=== PATIENT | male | born 1975 | race Caucasian/White ===

== ENCOUNTER 2019-01-04 14:29 | Emergency (ER) | payer BC ==
[2019-01-04 14:34] VITALS: TEMP 97.9
[2019-01-04 15:13] VITALS: BP 135/89; PULSE 85; RESP 16
[2019-01-04] MEDS ORDERED: PANTOPRAZOLE 40 MG/10 ML VIAL IVP STA (16:03)
[2019-01-04] MEDS ORDERED: SODIUM CHLORIDE 0.9% 1,000 ML IV STA (16:03)
--- NOTE | 2019-01-04 16:45 | ED ---
Abdominal Pain HPI - General Chief Complaint: Abdominal Pain Stated Complaint: Chest pain Time Seen by Provider: 01/04/19 15:08 Source: patient Mode of arrival: ambulatory Limitations: no limitations - History of Present Illness Initial Comments: Patient is a 43-year-old male presenting to the emergency Department with complaints of epigastric pain x 1 week. Patient states he has been having issues with heartburn the last few weeks and states his pain has been progressively getting worse. Patient states the pain has been radiating out to either side as well. Patient states he has been taking Tums and omeprazole without relief of symptoms. Patient denies fever, chills, chest pain, shortness of breath, nausea, vomiting, diarrhea. Patient states he has not been to his PCP in years. Patient denies history of cardiac disease. Patient states family history of gallbladder issues. Patient has no other complaints at this time. Upon arrival to ER, vital signs are stable. - Related Data Home Medications Medication Instructions Recorded Confirmed Omeprazole Magnesium [PriLOSEC OTC] 20 mg PO DAILY 01/04/19 01/04/19 Allergies Allergy/AdvReac Type Severity Reaction Status Date / Time No Known Allergies Allergy Verified 01/04/19 14:42 Review of Systems ROS Statement: Those systems with pertinent positive or pertinent negative responses have been documented in the HPI. ROS Other: All systems not noted in ROS Statement are negative. Past Medical History Past Medical History: No Reported History History of Any Multi-Drug Resistant Organisms: None Reported Past Surgical History: Back Surgery Past Psychological History: No Psychological Hx Reported Smoking Status: Never smoker Past Alcohol Use History: Occasional Past Drug Use History: None Reported General Exam - General Exam Comments Initial Comments: GENERAL: Well-appearing, well-nourished and in no acute distress. HEAD: Atraumatic, normocephalic. EYES: Pupils equal round and reactive to light, extraocular movements intact, sclera anicteric, conjunctiva are normal. ENT: TMs normal, nares patent, oropharynx clear without exudates. Moist mucous membranes. NECK: Normal range of motion, supple without lymphadenopathy or JVD. LUNGS: Breath sounds clear to auscultation bilaterally and equal. No wheezes rales or rhonchi. HEART: Regular rate and rhythm without murmurs, rubs or gallops. ABDOMEN: Tender to palpation epigastric region. Soft, normoactive bowel sounds. No guarding, no rebound. No masses appreciated. : Deferred EXTREMITIES: Normal range of motion, no pitting or edema. No clubbing or cyanosis. NEUROLOGICAL: Cranial nerves II through XII grossly intact. Normal speech, normal gait. PSYCH: Normal mood, normal affect. SKIN: Warm, Dry, normal turgor, no rashes or lesions noted. Limitations: no limitations Course Vital Signs 01/04/19 01/04/19 01/04/19 14:31 14:34 18:46 Temperature 97.9 F 97.9 F Pulse Rate 101 H 85 85 Respiratory 18 16 16 Rate Blood Pressure 120/85 135/89 135/89 O2 Sat by Pulse 98 95 95 Oximetry Medical Decision Making - Medical Decision Making Patient is a 43-year-old male presenting with epigastric pain has been increasing over the past week. Patient denies fever, chills, vomiting, diarrhea. Patient admits to intermittent nausea. Patient has been taking omeprazole and Tums without improvement in symptoms. Patient has not been to his PCP in years. Patient denies any chest pain, shortness of breath. On exam patient has tenderness in the epigastric region, rest of exam is normal. CBC, CMP are within normal limits. Troponin is normal. EKG is normal. UA shows no signs of infection. Patient was given fluids and Protonix and patient reports improvement in symptoms. Discussed with patient this is most likely related to possible ulcer or gastritis. Patient will continue to take omeprazole but will double the dose and will be taking 40 mg daily. Patient was given referral for PCP and GI. Patient is stable for discharge at this time. Return parameters were discussed with the patient he verbalizes understanding. Case discussed with Dr. Arteaga. - Lab Data Result diagrams: 01/04/19 16:22 01/04/19 16:22 Lab Results 01/04/19 01/04/19 01/04/19 Range/Units 16:22 16:22 16:22 WBC 10.3 (3.8-10.6) k/uL RBC 4.87 (4.30-5.90) m/uL Hgb 14.8 (13.0-17.5) gm/dL Hct 41.2 (39.0-53.0) % MCV 84.5 (80.0-100.0) fL MCH 30.3 (25.0-35.0) pg MCHC 35.9 (31.0-37.0) g/dL RDW 14.2 (11.5-15.5) % Plt Count 223 (150-450) k/uL Neutrophils % 82 % Lymphocytes % 10 % Monocytes % 5 % Eosinophils % 2 % Basophils % 1 % Neutrophils # 8.4 H (1.3-7.7) k/uL Lymphocytes # 1.0 (1.0-4.8) k/uL Monocytes # 0.5 (0-1.0) k/uL Eosinophils # 0.2 (0-0.7) k/uL Basophils # 0.1 (0-0.2) k/uL Hyperchromasia Slight Sodium 140 (137-145) mmol/L Potassium 4.1 (3.5-5.1) mmol/L Chloride 105 (98-107) mmol/L Carbon Dioxide 22 (22-30) mmol/L Anion Gap 13 mmol/L BUN 14 (9-20) mg/dL Creatinine 1.13 (0.66-1.25) mg/dL Est GFR (CKD-EPI)AfAm >90 (>60 ml/min/1.73 sqM) Est GFR (CKD-EPI)NonAf 80 (>60 ml/min/1.73 sqM) Glucose 89 (74-99) mg/dL Calcium 9.5 (8.4-10.2) mg/dL Total Bilirubin 1.4 H (0.2-1.3) mg/dL AST 36 (17-59) U/L ALT 30 (21-72) U/L Alkaline Phosphatase 87 (38-126) U/L Troponin I <0.012 (0.000-0.034) ng/mL Total Protein 7.3 (6.3-8.2) g/dL Albumin 4.5 (3.5-5.0) g/dL Amylase 49 (30-110) U/L Lipase 75 (23-300) U/L Urine Color Urine Appearance (Clear) Urine pH (5.0-8.0) Ur Specific [place] (1.001-1.035) Urine Protein (Negative) Urine Glucose (UA) (Negative) Urine Ketones (Negative) Urine Blood (Negative) Urine Nitrite (Negative) Urine Bilirubin (Negative) Urine Urobilinogen (<2.0) mg/dL Ur Leukocyte Esterase (Negative) 09/20/19 Range/Units 17:35 WBC (3.8-10.6) k/uL RBC (4.30-5.90) m/uL Hgb (13.0-17.5) gm/dL Hct (39.0-53.0) % MCV (80.0-100.0) fL MCH (25.0-35.0) pg MCHC (31.0-37.0) g/dL RDW (11.5-15.5) % Plt Count (150-450) k/uL Neutrophils % % Lymphocytes % % Monocytes % % Eosinophils % % Basophils % % Neutrophils # (1.3-7.7) k/uL Lymphocytes # (1.0-4.8) k/uL Monocytes # (0-1.0) k/uL Eosinophils # (0-0.7) k/uL Basophils # (0-0.2) k/uL Hyperchromasia Sodium (137-145) mmol/L Potassium (3.5-5.1) mmol/L Chloride (98-107) mmol/L Carbon Dioxide (22-30) mmol/L Anion Gap mmol/L BUN (9-20) mg/dL Creatinine (0.66-1.25) mg/dL Est GFR (CKD-EPI)AfAm (>60 ml/min/1.73 sqM) Est GFR (CKD-EPI)NonAf (>60 ml/min/1.73 sqM) Glucose (74-99) mg/dL Calcium (8.4-10.2) mg/dL Total Bilirubin (0.2-1.3) mg/dL AST (17-59) U/L ALT (21-72) U/L Alkaline Phosphatase (38-126) U/L Troponin I (0.000-0.034) ng/mL Total Protein (6.3-8.2) g/dL Albumin (3.5-5.0) g/dL Amylase (30-110) U/L Lipase (23-300) U/L Urine Color Light Yellow Urine Appearance Clear (Clear) Urine pH 6.5 (5.0-8.0) Ur Specific [place] 1.010 (1.001-1.035) Urine Protein Negative (Negative) Urine Glucose (UA) Negative (Negative) Urine Ketones Negative (Negative) Urine Blood Negative (Negative) Urine Nitrite Negative (Negative) Urine Bilirubin Negative (Negative) Urine Urobilinogen <2.0 (<2.0) mg/dL Ur Leukocyte Esterase Negative (Negative) - EKG Data EKG Comments: Jugular rate 78, MT interval 164, QTC 435. Normal sinus rhythm. No ST segment changes. Disposition Clinical Impression: Epigastric pain, Gastritis Disposition: HOME SELF-CARE Condition: Stable Instructions (If sedation given, give patient instructions): Gastritis (ED) Additional Instructions: Please return to the Emergency Department if symptoms worsen or any other concerns. Follow-up with PCP and/or gastro-if symptoms do not improve. Take 40 mg of omeprazole, daily, as discussed. Is patient prescribed a controlled substance at d/c from ED?: No Referrals: None,Stated [Primary Care Provider] - 1-2 days Sergei Simon MD [REFERRING] - 1-2 days Amari Pelletier MD [STAFF PHYSICIAN] - 1-2 days
[2019-01-04 17:14] LABS: ALT 30 U/L (21-72); AST 36 U/L (17-59); African American GFR (CKD) >90 (>60 ml/min/1.73 sqM); Albumin 4.5 g/dL (3.5-5.0); Alkaline Phosphatase 87 U/L (38-126); Amylase 49 U/L (30-110); Anion Gap 13 mmol/L; Blood Urea Nitrogen 14 mg/dL (9-20); Calcium 9.5 mg/dL (8.4-10.2); Carbon Dioxide 22 mmol/L (22-30); Chloride 105 mmol/L (98-107); Glucose 89 mg/dL (74-99); Potassium 4.1 mmol/L (3.5-5.1); Sodium 140 mmol/L (137-145); Total Bilirubin 1.4 mg/dL (0.2-1.3); Total Protein 7.3 g/dL (6.3-8.2)
[2019-01-04 17:16] LABS: Basophils # (A) 0.1 k/uL (0-0.2); Basophils % (A) 1 %; Eosinophils # (A) 0.2 k/uL (0-0.7); Eosinophils % (A) 2 %; HCT 41.2 % (39.0-53.0); HGB 14.8 gm/dL (13.0-17.5); Hyperchromasia Slight; Lymphocytes % (A) 10 %; MCH 30.3 pg (25.0-35.0); MCHC 35.9 g/dL (31.0-37.0); MCV 84.5 fL (80.0-100.0); Mean Platelet Volume 6.9; Monocytes # (A) 0.5 k/uL (0-1.0); Monocytes % (A) 5 %; Neutrophils # (A) 8.4 k/uL (1.3-7.7); Neutrophils % (A) 82 %; Platelet Count 223 k/uL (150-450); RBC 4.87 m/uL (4.30-5.90); RDW 14.2 % (11.5-15.5); WBC 10.3 k/uL (3.8-10.6)
[2019-01-04 17:48] LABS: Appearance,Urine Clear (Clear); Bilirubin,Urine Negative (Negative); Blood,Urine Negative (Negative); Color,Urine Light Yellow; Glucose,Urine (UA) Negative (Negative); Ketones,Urine Negative (Negative); Leukocyte Esterase,Urine Negative (Negative); Nitrite,Urine Negative (Negative); PH, Urine 6.5 (5.0-8.0); Protein,Urine Negative (Negative); Urobilinogen,Urine <2.0 mg/dL (<2.0)
== END 2019-01-04 18:46 | disposition home or self-care (01) ==
LOC: EC 14:29
DX: K29.70 Gastritis, unspecified, without bleeding (principal); Z79.899 Other long term (current) drug therapy
CPT/HCPCS: 36415; 93005; 80053; 82150; 83690; 84484; 85025; 81003; 99284; 96374; 96361 ×2; C9113

== ENCOUNTER 2019-01-14 00:58 | Emergency (ER) | payer BC ==
[2019-01-14] MEDS ORDERED: HYDROmorphone 0.5 MG/0.5 ML SYRINGE IVP STA (01:40)
[2019-01-14] MEDS ORDERED: ONDANSETRON 4 MG/2 ML VIAL IVP STA (01:40)
[2019-01-14] MEDS ORDERED: SODIUM CHLORIDE 0.9% 1,000 ML IV STA (01:40)
[2019-01-14] MEDS ORDERED: KETOROLAC 30 MG/ML 1 ML VIAL IVP STA (01:40)
[2019-01-14 01:53] LABS: Appearance,Urine Clear (Clear); Bilirubin,Urine Negative (Negative); Blood,Urine Negative (Negative); Color,Urine Yellow; Glucose,Urine (UA) Negative (Negative); Ketones,Urine Negative (Negative); Leukocyte Esterase,Urine Negative (Negative); Nitrite,Urine Negative (Negative); PH, Urine 6.5 (5.0-8.0); Protein,Urine Trace (Negative); Specific Gravity,Urine 1.024 (1.001-1.035)
[2019-01-14 02:20] LABS: Basophils % (A) 0 %; Eosinophils # (A) 0.1 k/uL (0-0.7); Eosinophils % (A) 1 %; HCT 37.1 % (39.0-53.0); Lymphocytes # (A) 0.8 k/uL (1.0-4.8); Lymphocytes % (A) 12 %; MCH 30.5 pg (25.0-35.0); MCHC 37.8 g/dL (31.0-37.0); MCV 80.5 fL (80.0-100.0); Mean Platelet Volume 5.9; Monocytes # (A) 0.3 k/uL (0-1.0); Monocytes % (A) 5 %; Neutrophils # (A) 5.6 k/uL (1.3-7.7); Neutrophils % (A) 80 %; Platelet Count 267 k/uL (150-450); RBC 4.61 m/uL (4.30-5.90); RDW 11.9 % (11.5-15.5); WBC 6.9 k/uL (3.8-10.6)
--- NOTE | 2019-01-14 02:31 | US ---
EXAMINATION TYPE: US abdomen limited DATE OF EXAM: 01/14/2019 COMPARISON: NONE CLINICAL HISTORY: RUQ pain. RUQ, N/V EXAM MEASUREMENTS: Liver Length: 15.2 cm Gallbladder Wall: 0.2 cm Right Kidney: 10.3 x 4.6 x 4.8 cm Suboptimal visualization due to overlying bowel gas Pancreas: Echogenic in appearance Liver: Slightly echogenic and coarse Gallbladder: wnl Evidence for sonographic Saini's sign: neg CBD: Obscured by overlying bowel gas Right Kidney: Medial anechoic lesion at hilum - 1.5 x 1.1 cm IMPRESSION: No gallstones or dilated ducts. No focal liver defect. There is probably some fatty infil tration of the liver.
[2019-01-14 02:32] LABS: Albumin 4.3 g/dL (3.5-5.0); Calcium 9.3 mg/dL (8.4-10.2); Total Bilirubin 0.8 mg/dL (0.2-1.3)
--- NOTE | 2019-01-14 03:36 | CT ---
EXAMINATION TYPE: CT abdomen pelvis w con DATE OF EXAM: 01/14/2019 COMPARISON: None HISTORY: RUQ CT DLP: 1457.1 mGycm Automated exposure control for dose reduction was used. TECHNIQUE: Helical acquisition of images was performed from the lung bases through the pelvis. CONTRAST: Performed without Oral Contrast and with IV Contrast, patient injected with 100 mL of Isovue 300. FINDINGS: Lung bases are clear of infiltrate. There is no pleural effusion. Heart size is normal. There is no p ericardial effusion. Liver spleen pancreas gallbladder appear normal. Bile ducts are not dilated. Stomach appears normal. There is no adrenal mass. Kidneys show satisfactory contrast opacification. There is no hydronephrosi s. Ureters are not dilated. Bladder distends smoothly. There is no inguinal hernia. There is no free fluid in the pelvis. There is no retroperitoneal adenopathy. Appendix appears normal. There is no mesenteric edema. There is no ascites or free air. There is no sign of a bowel obstructio n. There is disc space narrowing at L5-S1. There is no compression fracture. Bony pelvis is intact. IMPRESSION: NEGATIVE CT SCAN ABDOMEN AND PELVIS.
[2019-01-14] MEDS ORDERED: ACET/COD 300 MG/30 MG STARTER PACK 6 TAB BTL PO STA (03:42)
[2019-01-14] MEDS ORDERED: ONDANSETRON 4 MG ODT STARTER PACK 2 TAB BTL PO STA (03:42)
--- NOTE | 2019-01-14 03:44 | ED ---
Abdominal Pain HPI - General Chief Complaint: Abdominal Pain Stated Complaint: Rt Side Abd Pain Time Seen by Provider: 01/14/19 01:40 Source: patient, family Mode of arrival: ambulatory Limitations: no limitations - History of Present Illness Initial Comments: 43-year-old male patient presents to the emergency department today for evaluation of right upper quadrant pain radiating to his right mid back. The patient is also reporting several episodes of vomiting. Patient states symptoms started this evening around 9 PM. Patient states he did have similar symptoms without vomiting a couple of weeks ago. Patient states he was evaluated in the emergency department was diagnosed with possible stomach ulcer. He was advised to increase dosage on his Protonix. States he did do this and it did improve symptoms for a short period and then symptoms returned today. Patient states he did not eat dinner tonight. Denies any known exacerbating or relieving factors. Denies any sick contacts. Denies any recent travel. Denies fever or chills with this. Denies any hematochezia, melena, or hematemesis. Denies history of surgery to the abdomen. Patient denies any recent rash, shortness breath, chest pain, diarrhea, constipation, numbness, tingling, dizziness, weakness, hematuria, dysuria, urinary urgency, urinary frequency, headache, visual natasha nges, or any other complaints. - Related Data Home Medications Medication Instructions Recorded Confirmed Omeprazole Magnesium [PriLOSEC OTC] 20 mg PO DAILY 01/04/19 01/04/19 Previous Rx's Medication Instructions Recorded Ondansetron [Zofran ODT] 4 mg PO Q8HR PRN #10 tab 01/14/19 Allergies Allergy/AdvReac Type Severity Reaction Status Date / Time No Known Allergies Allergy Verified 01/14/19 01:09 Review of Systems ROS Statement: Those systems with pertinent positive or pertinent negative responses have been documented in the HPI. ROS Other: All systems not noted in ROS Statement are negative. Past Medical History Past Medical History: No Reported History History of Any Multi-Drug Resistant Organisms: None Reported Past Surgical History: Back Surgery Past Psychological History: No Psychological Hx Reported Smoking Status: Never smoker Past Alcohol Use History: Occasional Past Drug Use History: None Reported General Exam Limitations: no limitations General appearance: alert, in no apparent distress, other (This is a well- developed, well-nourished adult male patient in no acute distress. Vital signs upon presentation are temperature 98.0F, pulse 81, respirations 20, blood pressure 123/80, pulse ox 100% on room air.) Eye exam: Present: normal appearance, PERRL, EOMI. Absent: scleral icterus, conjunctival injection, periorbital swelling ENT exam: Present: normal exam, normal oropharynx, mucous membranes moist Respiratory exam: Present: normal lung sounds bilaterally. Absent: respiratory distress, wheezes, rales, rhonchi, stridor Cardiovascular Exam: Present: regular rate, normal rhythm, normal heart sounds. Absent: systolic murmur, diastolic murmur, rubs, gallop, clicks GI/Abdominal exam: Present: soft, tenderness (Right upper quadrant tenderness), normal bowel sounds. Absent: distended, guarding, rebound, rigid Neurological exam: Present: alert, oriented X3, CN II-XII intact Psychiatric exam: Present: normal affect, normal mood Skin exam: Present: warm, dry, intact, normal color. Absent: rash Course Vital Signs 01/14/19 01/14/19 01/14/19 01:05 02:05 02:57 Temperature 98 F 98.3 F Pulse Rate 81 84 80 Respiratory 20 18 18 Rate Blood Pressure 123/80 128/89 120/82 O2 Sat by Pulse 100 98 95 Oximetry 01/14/19 04:29 Temperature 97.8 F Pulse Rate 70 Respiratory 20 Rate Blood Pressure 113/78 O2 Sat by Pulse 95 Oximetry Medical Decision Making - Medical Decision Making 43-year-old male patient presented to the emergency department today for evaluation of right upper quadrant pain and vomiting. Physical examination did reveal right upper quadrant tenderness. Urinalysis showed no evidence for hematuria or infection. Ultrasound of the right upper quadrant abdomen was obtained and showed no acute abnormalities. Labs reviewed and were unremarkable. I did discuss findings and results with the patient. We did discuss possibility of gallbladder dysfunction versus peptic ulcer disease. Patient is not satisfied with these answers and is convinced something is wrong. I did offer computed tomography scan at this point. CT abdomen and pelvis was obtained and showed nonacute abdomen. I discussed findings with the patient. He will be discharged home with instructions to follow up with gastroenterology for further evaluation. He is also given recommendation for primary care physician. Is given a starter pack of Zofran. Return parameters discussed in detail. He verbalizes understanding and agrees with this plan. - Lab Data Result diagrams: 01/14/19 02:11 01/14/19 02:11 Lab Results 01/14/19 01/14/19 01/14/19 Range/Units 01:46 02:11 02:11 WBC 6.9 (3.8-10.6) k/uL RBC 4.61 (4.30-5.90) m/uL Hgb 14.0 (13.0-17.5) gm/dL Hct 37.1 L (39.0-53.0) % MCV 80.5 (80.0-100.0) fL MCH 30.5 (25.0-35.0) pg MCHC 37.8 H (31.0-37.0) g/dL RDW 11.9 (11.5-15.5) % Plt Count 267 (150-450) k/uL Neutrophils % 80 % Lymphocytes % 12 % Monocytes % 5 % Eosinophils % 1 % Basophils % 0 % Neutrophils # 5.6 (1.3-7.7) k/uL Lymphocytes # 0.8 L (1.0-4.8) k/uL Monocytes # 0.3 (0-1.0) k/uL Eosinophils # 0.1 (0-0.7) k/uL Basophils # 0.0 (0-0.2) k/uL Sodium 140 (137-145) mmol/L Potassium 4.0 (3.5-5.1) mmol/L Chloride 105 (98-107) mmol/L Carbon Dioxide 24 (22-30) mmol/L Anion Gap 11 mmol/L BUN 16 (9-20) mg/dL Creatinine 1.22 (0.66-1.25) mg/dL Est GFR (CKD-EPI)AfAm 84 (>60 ml/min/1.73 sqM) Est GFR (CKD-EPI)NonAf 73 (>60 ml/min/1.73 sqM) Glucose 118 H (74-99) mg/dL Calcium 9.3 (8.4-10.2) mg/dL Total Bilirubin 0.8 (0.2-1.3) mg/dL AST 30 (17-59) U/L ALT 36 (21-72) U/L Alkaline Phosphatase 90 (38-126) U/L Total Protein 7.0 (6.3-8.2) g/dL Albumin 4.3 (3.5-5.0) g/dL Amylase 37 (30-110) U/L Lipase 94 (23-300) U/L Urine Color Yellow Urine Appearance Clear (Clear) Urine pH 6.5 (5.0-8.0) Ur Specific [place] 1.024 (1.001-1.035) Urine Protein Trace H (Negative) Urine Glucose (UA) Negative (Negative) Urine Ketones Negative (Negative) Urine Blood Negative (Negative) Urine Nitrite Negative (Negative) Urine Bilirubin Negative (Negative) Urine Urobilinogen 2.0 (<2.0) mg/dL Ur Leukocyte Esterase Negative (Negative) - Radiology Data Radiology results: report reviewed Ultrasound of the right upper quadrant abdomen was obtained. Report was reviewed in its entirety. Impression by Dr. Sotelo shows no gallstones or dilated ducts. No focal liver defect. There is pelvis some fatty infiltration of the liver. CT of the abdomen and pelvis was obtained. Report was reviewed in its entirety. Impression by Dr. Sotelo shows negative computed tomography scan abdomen and pelvis. Disposition Clinical Impression: Abdominal pain, Vomiting Disposition: HOME SELF-CARE Condition: Good Instructions (If sedation given, give patient instructions): Acute Nausea and Vomiting (ED), Abdominal Pain (ED) Additional Instructions: Start with a clear liquid diet and advance as tolerated. Use medications as directed. Follow-up with your primary care physician for recheck as soon as po ssible. Follow up with GI specialist for further evaluation. Return to the emergency department for any new, worsening, or concerning symptoms. Prescriptions: Ondansetron [Zofran ODT] 4 mg PO Q8HR PRN #10 tab PRN Reason: Nausea Is patient prescribed a controlled substance at d/c from ED?: No Referrals: Sergei Simon MD [REFERRING] - 1-2 days Yoli Murillo MD [STAFF PHYSICIAN] - 1-2 days Time of Disposition: 03:43
[2019-01-14 04:30] VITALS: BP 113/78; PULSE 70; RESP 20; TEMP 97.8
== END 2019-01-14 04:30 | disposition home or self-care (01) ==
LOC: EC 00:58
DX: R10.11 Right upper quadrant pain (principal); R11.10 Vomiting, unspecified
CPT/HCPCS: 36415; 80053; 82150; 83690; 85025; 81003; 76705; 74177; 99284; 96374; 96375 ×2; 96361 ×2; J2405; J1885; S0119; J1170; Q9967

== ENCOUNTER → 2019-01-18 | Outpatient (CLI) | payer BC ==
--- NOTE | 2019-01-18 14:48 | NM ---
Nuclear medicine hepatobiliary scan. HISTORY: Pain. DOSAGE: The patient received 8 ounces ensure plus and 4.4 mCi of Technetium 99m Choletec. FINDINGS: There is normal hepatic extraction. The gallbladder is seen by 20 minutes. There is bilia ry to bowel clearance by 20 minutes. Ejection fraction is 71%. IMPRESSION: 1. Normal hepatobiliary exam
== END | disposition home or self-care (01) ==
LOC: RADNMMAIN 12:40
PROVIDERS: ATTEND Family Medicine
DX: R10.11 Right upper quadrant pain (principal)
CPT/HCPCS: 78226; A9537

== ENCOUNTER 2019-02-12 19:48 | Observation (INO) | payer BC ==
[2019-02-12] MEDS ORDERED: SODIUM CHLORIDE 0.9% 1,000 ML IV STA ×2 (20:02→20:41)
[2019-02-12 20:41] LABS: ALT 41 U/L (21-72); AST 35 U/L (17-59); African American GFR (CKD) >90 (>60 ml/min/1.73 sqM); Albumin 4.9 g/dL (3.5-5.0); Alkaline Phosphatase 105 U/L (38-126); Anion Gap 14 mmol/L; Basophils # (A) 0.1 k/uL (0-0.2); Basophils % (A) 1 %; Blood Urea Nitrogen 10 mg/dL (9-20); Carbon Dioxide 22 mmol/L (22-30); Chloride 106 mmol/L (98-107); Eosinophils # (A) 0.1 k/uL (0-0.7); Eosinophils % (A) 2 %; Glucose 96 mg/dL (74-99); HCT 42.2 % (39.0-53.0); HGB 15.2 gm/dL (13.0-17.5); Hyperchromasia Slight; Lymphocytes # (A) 1.8 k/uL (1.0-4.8); Lymphocytes % (A) 28 %; MCH 30.1 pg (25.0-35.0); MCHC 35.9 g/dL (31.0-37.0); MCV 83.7 fL (80.0-100.0); Magnesium 2.2 mg/dL (1.6-2.3); Mean Platelet Volume 6.2; Monocytes # (A) 0.3 k/uL (0-1.0); Monocytes % (A) 5 %; Neutrophils # (A) 4.1 k/uL (1.3-7.7); Neutrophils % (A) 63 %; Non-African American GFR(CKD) 87 (>60 ml/min/1.73 sqM); Platelet Count 246 k/uL (150-450); Potassium 3.4 mmol/L (3.5-5.1); RBC 5.04 m/uL (4.30-5.90); RDW 12.6 % (11.5-15.5); Sodium 142 mmol/L (137-145); Total Bilirubin 1.6 mg/dL (0.2-1.3); WBC 6.6 k/uL (3.8-10.6)
[2019-02-12] MEDS ORDERED: LORazepam 2 MG/ML INJ IV STA (20:41)
--- NOTE | 2019-02-12 20:41 | ED ---
Chest Pain HPI - General Chief Complaint: Chest Pain Stated Complaint: Chest pain Time Seen by Provider: 02/12/19 19:58 Source: patient, RN notes reviewed, old records reviewed Mode of arrival: ambulatory Limitations: no limitations - History of Present Illness Initial Comments: His is a 43-year-old male who presents today for evaluation regards to chest pain chest pain and anxiety type symptoms. Hyperventilation numbness and tingling of arms and feet. Patient states he cannot catch his breath is been, hasn't had significant recent evaluation of right sided abdominal pain. No significant findings currently. Patient is multiple evaluations here in the ER. As well as an outpatient basis. Patient scheduled for lower GI colonoscopy as he has hardly had an upper GI barium swallow and multiple imaging studies. Patient also has no other complaints no fevers. MD Complaint: chest pain (Right upper quadrant abdominal pain right flank pain) -: days(s) Onset: during rest, during exertion Pain Location: right chest (Right flank) Pain Radiation: abdomen (Right-sided abdomen) Severity: mild Severity scale (1-10): 3 Quality: tightness Consistency: constant Improves With: nothing Anginal Symptoms: dyspnea Other Symptoms: cough Treatments Prior to Arrival: none - Related Data Home Medications Medication Instructions Recorded Confirmed Omeprazole 40 mg PO DAILY 02/12/19 02/12/19 Pregabalin [Lyrica] 75 mg PO BID 02/12/19 02/12/19 Allergies Allergy/AdvReac Type Severity Reaction Status Date / Time No Known Allergies Allergy Verified 02/12/19 21:12 Review of Systems ROS Statement: Those systems with pertinent positive or pertinent negative responses have been documented in the HPI. ROS Other: All systems not noted in ROS Statement are negative. EKG Findings - EKG Comments: EKG Findings:: EKG shows sinus tachycardia rate of 113, MS 164, QRS 86, QTc 460 Past Medical History Past Medical History: No Reported History History of Any Multi-Drug Resistant Organisms: None Reported Past Surgical History: Back Surgery Past Psychological History: No Psychological Hx Reported Smoking Status: Never smoker Past Alcohol Use History: Occasional Past Drug Use History: None Reported General Exam Limitations: no limitations General appearance: alert, in no apparent distress Head exam: Present: atraumatic, normocephalic, normal inspection Eye exam: Present: normal appearance, PERRL, EOMI. Absent: scleral icterus, conjunctival injection, periorbital swelling ENT exam: Present: normal exam, mucous membranes moist Neck exam: Present: normal inspection. Absent: tenderness, meningismus, lymphadenopathy Respiratory exam: Present: normal lung sounds bilaterally. Absent: respiratory distress, wheezes, rales, rhonchi, stridor Cardiovascular Exam: Present: normal rhythm, tachycardia, normal heart sounds. Absent: systolic murmur, diastolic murmur, rubs, gallop, clicks GI/Abdominal exam: Present: soft, normal bowel sounds. Absent: distended, tenderness, guarding, rebound, rigid Extremities exam: Present: normal inspection, full ROM, normal capillary refill. Absent: tenderness, pedal edema, joint swelling, calf tenderness Back exam: Present: normal inspection Neurological exam: Present: alert, oriented X3, CN II-XII intact Psychiatric exam: Present: normal affect, normal mood Skin exam: Present: warm, dry, intact, normal color. Absent: rash Course Vital Signs 02/12/19 02/12/19 02/12/19 19:51 20:24 21:26 Temperature 98.0 F Pulse Rate 115 H 85 Respiratory 20 30 H 18 Rate Blood Pressure 145/83 130/82 O2 Sat by Pulse 100 98 Oximetry - Reevaluation(s) Reevaluation #1: 02/12/19 21:31 Medical record is reviewed Reevaluation #2: 02/12/19 23:04 Patient's anxiety and pain are significantly improved Reevaluation #3: 02/12/19 23:05 Patient states feels safe for discharge home states he is still with some pain issues and never caused him to feel such pain as he had today as well as being of a significant anxiety with it Chest Pain MDM - MDM 43 male the ER with significant anxiety attack with right-sided abdominal pain r ight side pain. No significant cause found for patient's pain is had multiple outpatient evaluations for similar complaints. Patient expecting GI evaluation, anxiety is improved currently patient be admitted for GI to see Disposition Clinical Impression: Abdominal pain Disposition: ADMITTED IP TO THIS HOSP Condition: Good Instructions (If sedation given, give patient instructions): Abdominal Pain (ED) Is patient prescribed a controlled substance at d/c from ED?: No Referrals: Nathan Berman MD [Primary Care Provider] - 1-2 days
[2019-02-12 20:45] LABS: D-Dimer 0.28 mg/L FEU (<0.60); INR 0.9 (<1.2); Partial Thromboplastin Time 29.3 sec (22.0-30.0); Prothrombin Time 10.1 sec (9.0-12.0)
[2019-02-12] MEDS ORDERED: KETOROLAC 30 MG/ML 1 ML VIAL IVP STA (21:32)
[2019-02-12] MEDS ORDERED: MORPHINE SULFATE 4 MG/ML SYRINGE IVP STA (21:32)
--- NOTE | 2019-02-12 21:37 | XR ---
EXAMINATION: XR chest 2V DATE AND TIME: 02/12/2019 8:42 PM CLINICAL INDICATION: PHH; Chest Pain TECHNIQUE: Departmental protocol COMPARISON: None FINDINGS: The lungs are clear. The pleural spaces are negative. The cardiac silhouette is not enlarged. The remainder of the mediastinal silhouette is unremarkable. The skeletal structures and soft tissues are negative for acute findings. IMPRESSION: NO ACUTE PROCESS.
[2019-02-12] MEDS ORDERED: ONDANSETRON 4 MG/2 ML VIAL IVP PRN (23:03)
[2019-02-12] MEDS ORDERED: ONDANSETRON 4 MG/2 ML VIAL IVP STA (23:03)
[2019-02-12] MEDS ORDERED: LORazepam 2 MG/ML INJ IV PRN (23:03)
[2019-02-13] MEDS: MORPHINE SULFATE 4 MG/ML SYRINGE IVP PRN ×3 (09:06→19:02)
--- NOTE | 2019-02-13 14:05 | P.HPIM ---
History of Present Illness Patient is a pleasant 43-year-old male came in with the epigastric abdominal pain sharp in nature radiates to the right upper quadrant and to the back. Patient does have back issues patient was extensively evaluated for right upper quadrant epigastric abdominal pain patient had a recent upper GI endoscopy which did not show any significant abnormality. Patient had a gallbladder ultrasound CAT scan of the abdomen and HIDA scan all of which are within normal limits. Patient had lumbar spinal surgery in the past. Patient any fever chills nausea vomiting. Patient was bit anxious because of the pain and had tingling and numbness in both hands because of that. Anxiety leading to hyperventilation leading to hypocalcemia can cause tingling and numbness and if he has issues with thoracic spine that can cause numbness in the hands as well. Review of Systems REVIEW OF SYSTEMS: CONSTITUTIONAL: No fever, no malaise, no fatigue. HEENT: No recent visual problems or hearing problems. Denied any sore throat. CARDIOVASCULAR: No chest pain, orthopnea, PND, no palpitations, no syncope. PULMONARY: No shortness of breath, no cough, no hemoptysis. GASTROINTESTINAL: No diarrhea, no nausea, no vomiting, NEUROLOGICAL: No headaches, no weakness, no numbness. HEMATOLOGICAL: Denies any bleeding or petechiae. GENITOURINARY: Denies any burning micturition, frequency, or urgency. MUSCULOSKELETAL/RHEUMATOLOGICAL: Denies any joint pain, swelling, or any muscle pain. ENDOCRINE: Denies any polyuria or polydipsia. The rest of the 14-point review of systems is negative. Past Medical History Past Medical History: No Reported History History of Any Multi-Drug Resistant Organisms: None Reported Past Surgical History: Back Surgery Past Anesthesia/Blood Transfusion Reactions: No Reported Reaction Past Psychological History: No Psychological Hx Reported Smoking Status: Never smoker Past Alcohol Use History: Occasional Past Drug Use History: None Reported - Past Family History Father Additional Family Medical History / Comment(s): parkinsons/dementia Mother Family Medical History: Thyroid Disorder Additional Family Medical History / Comment(s): pacer Brother(s) Family Medical History: No Reported History Son(s) Family Medical History: No Reported History Daughter(s) Family Medical History: No Reported History Medications and Allergies Home Medications Medication Instructions Recorded Confirmed Type Omeprazole 40 mg PO DAILY 02/12/19 02/13/19 History Pregabalin [Lyrica] 75 mg PO BID 02/12/19 02/13/19 History Allergies Allergy/AdvReac Type Severity Reaction Status Date / Time No Known Allergies Allergy Verified 02/13/19 00:19 Physical Exam Vitals: Vital Signs Temp Pulse Pulse Resp BP BP Pulse Ox 02/13/19 11:53 67 18 02/13/19 08:00 67 18 02/13/19 07:16 97.3 F L 67 18 106/70 97 02/13/19 00:00 97.5 F L 71 15 93/59 96 02/12/19 23:05 86 18 135/87 97 02/12/19 21:26 85 18 130/82 98 02/12/19 20:24 30 H 02/12/19 19:51 98.0 F 115 H 20 145/83 100 Intake and Output 02/12/19 02/13/19 02/13/19 22:59 06:59 14:59 Other: Voiding Method Toilet Toilet Weight 99.79 kg PHYSICAL EXAMINATION: GENERAL: The patient is alert and oriented x3, not in any acute distress. Well developed, well nourished. HEENT: Pupils are round and equally reacting to light. EOMI. No scleral icterus. No conjunctival pallor. Normocephalic, atraumatic. No pharyngeal erythema. No thyromegaly. CARDIOVASCULAR: S1 and S2 present. No murmurs, rubs, or gallops. PULMONARY: Chest is clear to auscultation, no wheezing or crackles. ABDOMEN: Soft, nontender, nondistended, normoactive bowel sounds. No palpable organomegaly. MUSCULOSKELETAL: No joint swelling or deformity. EXTREMITIES: No cyanosis, clubbing, or pedal edema. NEUROLOGICAL: Gross neurological examination did not reveal any focal deficits. SKIN: No rashes. Results CBC & Chem 7: 02/12/19 20:24 02/12/19 20:24 Labs: Abnormal Lab Results - Last 24 Hours (Table) 02/12/19 Range/Units 20:24 Potassium 3.4 L (3.5-5.1) mmol/L Total Bilirubin 1.6 H (0.2-1.3) mg/dL Thrombosis Risk Factor Assmnt - Choose All That Apply Any of the Below Risk Factors Present?: Yes Each Factor Represents 1 point: Age 41-60 years, Obesity (BMI >25) Other Risk Factors: No Other congenital or acquired thrombophilia - If yes, enter type in comment: No Thrombosis Risk Factor Assessment Total Risk Factor Score: 2 Thrombosis Risk Factor Assessment Level: Low Risk Assessment and Plan Plan: -Right upper quadrant and epigastric abdominal pain: All the workup as mentioned above is negative patient may have lower thoracic spine disease or vertebral disease which may be contributing to his symptoms because of which I'll obtain a MRI of the thoracolumbar spine. Patient will be started on tramadol as an anti-inflammatory for pain -Hypokalemia potassium will be supplemented
[2019-02-13] MEDS: PANTOPRAZOLE 40 MG/10 ML VIAL IVP SCH ×2 (14:14→20:55)
[2019-02-13] MEDS: DICYCLOMINE 10 MG CAP PO PRN (14:58)
--- NOTE | 2019-02-13 18:20 | MR ---
EXAMINATION TYPE: MR tspine/lspine wo/w con DATE OF EXAM: 02/13/2019 COMPARISON: None HISTORY: back pain in thoracic and lumbar spine TECHNIQUE: Multiplanar, multisequence images of the lumbar and thoracic spine is performed without and with IV c ontrast, utilizing 10 mL intravenous Gadavist FINDINGS: Thoracic and lumbar vertebra show fairly normal alignment. Thoracic disc spaces are fairly normal. Th oracic spinal cord has normal signal pattern. There is no edema. There is mild ectasia of the central spinal canal in the mid thoracic spinal cord consistent with a minimal syrinx. This is seen at the T 6 and T7 level. Fluid measures less than 2 mm. There is no cord expansion. I see no underlying mass. There is no thoracic spinal stenosis. There is no thoracic compression fracture. There is no thoracic paraspinal mass. There is small posterior disc herniation at C3-4 and C5-6 in the cervical spine. Lumbar vertebra show disc space narrowing at L5-S1. There is posterior disc herniation at L5-S1 into the spinal canal but no significant impingement on the lumbar nerve roots. There is no lumbar paraspi nal mass. The posterior elements appear intact. Contrast images show no pathologic enhancement of the thoracic or lumbar spine. There is developmentally adequate thoracic and lumbar spinal canal. There is L5 right-sided laminectomy defect noted. IMPRESSION: Previous surgery at L5 on the right side. No spinal stenosis. Mild posterior L5-S1 disc herniation wi thout significant impingement on the lumbar nerve roots. Mild neural foraminal narrowing at L5-S1 due to disc space narrowing and mild facet arthropathy. There is a very small syrinx of the thoracic spinal cord at T6 and T7 level of uncertain significance . No underlying cord mass seen.
--- NOTE | 2019-02-13 20:37 | CONS ---
CONSULTATION DATE OF DISCHARGE: 02/13/2019 REASON FOR CONSULTATION: Right upper quadrant abdominal pain. HISTORY OF PRESENT ILLNESS: The patient is a 43-year-old pleasant white male who was admitted to the hospital complaining of severe intermittent right upper quadrant abdominal pain for the last 4 months' duration. He has been experiencing the pain almost on a daily basis. He was seen by Dr. Bentley on an outpatient basis about 3 weeks ago. He initially had an ultrasound of the abdomen and subsequently CT of the abdomen that was unremarkable. There was no evidence of gallstones. After that he had a HIDA scan done that showed normal ejection fraction of the gallbladder. At the same time he had an upper endoscopy done at [facility], and according to the patient that was within normal limits. He was tried on Prilosec 20 mg daily for a whole month, with some improvement in the heartburn but no change in the pain. Yesterday the pain became extremely intense and hence he came into the emergency room and was subsequently admitted to the hospital for further evaluation. He is presently on Protonix 40 mg q.12 hours. He denies any recent NSAID use. No prior history of peptic ulcer disease. PAST MEDICAL HISTORY: His past medical history is significant for gastroesophageal reflux disease. PAST SURGICAL HISTORY: Back surgery. MEDICATIONS: Medications at home include omeprazole and Lyrica. ALLERGIES: NO KNOWN DRUG ALLERGIES. SOCIAL HISTORY: No smoking. No alcohol use. FAMILY HISTORY: Father had Parkinson's disease and mother had some thyroid disorder. REVIEW OF SYSTEMS: CARDIOPULMONARY: No chest pain or shortness of breath. GENITOURINARY: No dysuria or hematuria. MUSCULOSKELETAL: Unremarkable. SKIN: Unremarkable. ENDOCRINE: Unremarkable. PSYCHIATRIC: Unremarkable. NEUROLOGY: Unremarkable. ENT/VISION: Unremarkable. CONSTITUTIONAL: No recent weight loss. No fever, chills, night sweats. PHYSICAL EXAMINATION: He appears comfortable. No apparent distress. VITAL SIGNS: Stable. Blood pressure 106/70, pulse rate 67, temperature 97.3. HEENT examination unremarkable. Conjunctivae pink. Sclerae anicteric. Oral cavity no lesions. NECK: No JVD or lymph node enlargement. CHEST: Clear to auscultation. HEART: Regular rate and rhythm. ABDOMEN: Soft. There was very minimal tenderness in the epigastric and right upper quadrant area. No rebound or rigidity. Bowel sounds are positive. No organomegaly. EXTREMITIES: No pedal edema. SKIN: No rashes. NEUROLOGIC: Alert and oriented x3. No focal deficits. LABS: Labs done at the time of admission to the hospital showed CBC with differential count within normal limits. Basic metabolic panel within normal limits. T-bilirubin is 1.6. AST and ALT are within normal limits. Lipase is normal. IMPRESSION: This is a patient who presents to the hospital with severe right upper quadrant abdominal pain that started last night. He has been having similar symptoms for the last one month's duration. He was extensively investigated with an upper endoscopy, ultrasound of the abdomen, CT of the abdomen and HIDA scan, all of which were negative. He has been on empiric omeprazole 20 mg daily for the last one month, with improvement in the heartburn but no significant change in the pain. He was seen in our office by our PA Naomie Schwartz and had a small-bowel series done. Results are not available at the time of this dictation. At this time, etiology of pain appears to be functional in nature. RECOMMENDATIONS: 1. Start him on a regular diet. 2. Agree with MRI of the back. 3. Will start him on antispasmodics with dicyclomine 10 mg 3 times daily. 4. If symptoms improve, he can be discharged home with outpatient followup in 2 weeks. Thank you for this consultation. FRANKIEL / GERRIN: [id number] /
[2019-02-13] MEDS: traMADol 50 MG TAB PO PRN (23:26)
[2019-02-14] MEDS: PANTOPRAZOLE 40 MG/10 ML VIAL IVP SCH (09:09)
[2019-02-14] MEDS: traMADol 50 MG TAB PO PRN ×2 (09:15→15:10)
[2019-02-14] MEDS: DICYCLOMINE 10 MG CAP PO PRN (09:16)
[2019-02-14] MEDS: MORPHINE SULFATE 4 MG/ML SYRINGE IVP PRN (11:54)
[2019-02-14] MEDS ORDERED: NAPROXEN 250 MG TAB PO STA (15:57)
[2019-02-14] MEDS ORDERED: methylPREDNISolone SOD SUCCI 125 MG/2 ML VIAL IV STA (16:07)
[2019-02-14] MEDS ORDERED: ENOXAPARIN 40 MG/0.4 ML SYRINGE SQ SCH (16:15)
[2019-02-14] MEDS: PANTOPRAZOLE 40 MG TABLET PO SCH (17:23)
[2019-02-14] MEDS: BACLOFEN 10 MG TAB PO SCH ×2 (17:24→20:30)
--- NOTE | 2019-02-14 18:12 | P.PN ---
Progress Note - Text Progress Note Date: 02/14/19 Interval history: This is a 43-year-old patient who has had upper abdominal pain lasting for a few weeks off-and-on. Has had an extensive workup. Seen by both by general surgery and GI. Patient describes the pain in the upper abdomen below the rib cage goiter around her back to the spine. It's present most of the time. With acute exacerbations. No fever no chills. It is worse with movement. Not related to food intake. No fever no chills. No change in bowel pattern. Ultrasound comp uted tomography scan of the abdomen was unremarkable. HIDA scan was unremarkable. EGD was unremarkable.) Prilosec. All this was done as an outpatient. Review of systems: Was done for constitutional, cardiovascular, GI, pulmonary. relevant finding as above Active Medications Acetaminophen (Tylenol Tab) 500 mg PO Q6HR JENNIFER Baclofen (Lioresal) 5 mg PO QID [facility] Last Admin: 02/14/19 17:24 Dose: 5 mg Documented by: Dicyclomine HCl (Bentyl) 10 mg PO TID PRN PRN Reason: Dyspepsia Last Admin: 02/14/19 09:16 Dose: 10 mg Documented by: Enoxaparin Sodium (Lovenox) 40 mg SQ DAILY@1600 [facility] Last Admin: 02/14/19 17:24 Dose: Not Given Documented by: Lorazepam (Ativan) 1 mg IV Q6HR PRN PRN Reason: Anxiety Last Admin: 02/14/19 15:17 Dose: 1 mg Documented by: Naproxen (Naprosyn) 500 mg PO BID [facility] Ondansetron HCl (Zofran) 4 mg IVP Q6HR PRN PRN Reason: Nausea And Vomiting Pantoprazole Sodium (Protonix) 40 mg PO AC-BID [facility] Last Admin: 02/14/19 17:23 Dose: 40 mg Documented by: Prednisone () 60 mg PO DAILY [facility] Tramadol HCl (Ultram) 50 mg PO QID PRN PRN Reason: Pain/Discomfort Last Admin: 02/14/19 15:10 Dose: 50 mg Documented by: Physical examination: VITAL SIGNS: 97.9, 63, 18, 11 3/78, 95% room air GENERAL: BMI 21.6, laying in bed not in distress. EYES: Pupils equal. Conjunctiva normal. HEENT: External appearance of nose and ears normal, oral cavity grossly normal. NECK: JVD not raised; masses not palpable. HEART: First and second heart sounds are normal; no edema. LUNGS: Respiratory rate normal; clear to auscultation. ABDOMEN: Soft, nontender, liver spleen not palpable, no masses palpable. PSYCH: Alert and oriented x3; mood and affect normal. MUSCULOSKELETAL: Some tenderness over the lower thoracic spine, reproducible pain INVESTIGATIONS, reviewed in the clinical context: White count 6.6 hemoglobin 15.2 potassium 3.4 creatinine 1.06 Thoracolumbar spine MRI-mild posterior L5-S1 disc herniation without significant impingement on the low lumbar nerve root. Very small syrinx of the thoracic spinal cord at T6, T7 level level of uncertain significance. Assessment: -This is a patient persistent pain below the right rib cage extending to the back, not related to food intake no nausea vomiting, no fever no chills, going to this spine, appears to be radicular pain. Patient's had a rather extensive GI workup. -Obesity BMI 31.6 -GERD Plan: -Care was discussed at length with the patient. Highly doubt his presentation from GI. Porter to be more musculoskeletal with radicular pain. We will give the patient a trial of combination of steroids, NSAIDs, antispasmodic. We'll get from orthopedics spine to see him. Did instruct the patient and gentle stretching exercises. Did educate him about skipping straight connector being out of bed. Later witnessed the patient walking up and down the hallway. Patient has been tolerating his diet. Did discontinue the morphine. He put the patient on naproxen, Solu-Medrol, baclofen, Tylenol.
--- NOTE | 2019-02-14 18:54 | XR ---
EXAMINATION TYPE: XR thoracic spine 2V DATE OF EXAM: 02/14/2019 COMPARISON: NONE HISTORY: Pain TECHNIQUE: 3 views FINDINGS: Thoracic vertebra have normal spacing and alignment. Posterior elements are intact. There i s no paraspinal mass. IMPRESSION: Negative thoracic spine exam.
[2019-02-14] MEDS: ACETAMINOPHEN TAB 500 MG TAB PO SCH ×2 (18:56→23:22)
[2019-02-14] MEDS: predniSONE 20 MG TAB PO SCH (20:30)
[2019-02-14] MEDS: NAPROXEN 250 MG TAB PO SCH (20:31)
--- NOTE | 2019-02-14 20:34 | PN ---
PROGRESS NOTE DATE OF SERVICE: February 14, 2019 Patient is a 43-year-old pleasant white male admitted to hospital with severe right- sided abdominal pain on and off for the last 1 month duration. He had extensive GI workup done including an upper endoscopy and an ultrasound of the abdomen, CT of the abdomen, which were all unremarkable. Also had a HIDA scan that was unremarkable. He was given empiric Prilosec for 4 weeks with no help. He was admitted to hospital with worsening symptoms. Because of the possibility of musculoskeletal etiology, he had an MRI of the spine done yesterday that showed evidence of previous surgery at L5 on the right side. No spinal stenosis. Mild posterior L5 and S1 disc herniation without significant impingement on the lumbar nodes noted. In the meantime, the patient continues to complain of severe right-sided pain. He denies any nausea, vomiting. Tolerating diet well. PHYSICAL EXAMINATION: Appears comfortable. No apparent distress. VITAL SIGNS: Stable. Blood pressure is 126/83, pulse rate 75, temperature 98.2. HEENT examination unremarkable. Conjunctivae pink. Sclerae anicteric. Oral cavity no lesions. Neck no JVD or lymph node enlargement. Chest was clear to auscultation. HEART: Regular rate and rhythm. ABDOMEN: Soft. Bowel sounds are positive. No organomegaly. Tenderness along the right costal area along the back. EXTREMITIES: No pedal edema. Skin no rashes. Neuro: He is alert and oriented x3. No focal deficits. LABS: No labs available from today. IMPRESSION: Right-sided abdominal pain, possibly musculoskeletal in etiology cannot rule out any functional abdominal pain. As mentioned earlier, he had extensive evaluation for the gallbladder as well as upper endoscopy done by Dr. Bentley, which was unremarkable. HIDA scan also recently was unremarkable. MRA of the back, lumbar spine, showed changes of degenerative disc disease and mild herniation. RECOMMENDATIONS: 1. Continue with Protonix 40 mg twice daily. 2. Agree with muscle relaxants and anti-inflammatory medications. 3. Continue with dicyclomine 10 mg 3 times daily p.r.n. for abdominal pain. 4. No plans for any endoscopy intervention at the present time. Thank you for this consultation. MMODL / IJN: [id number] /
[2019-02-14] MEDS ORDERED: NAPROXEN 250 MG TAB PO SCH (22:00)
[2019-02-15] MEDS: ACETAMINOPHEN TAB 500 MG TAB PO SCH (06:03)
[2019-02-15 07:33] VITALS: BP 118/74; PULSE 83; RESP 18; TEMP 97.9
[2019-02-15] MEDS: predniSONE 20 MG TAB PO SCH (08:17)
[2019-02-15] MEDS: NAPROXEN 250 MG TAB PO SCH (08:18)
[2019-02-15] MEDS: BACLOFEN 10 MG TAB PO SCH (08:18)
[2019-02-15] MEDS: traMADol 50 MG TAB PO PRN (08:18)
[2019-02-15] MEDS: PANTOPRAZOLE 40 MG TABLET PO SCH (08:18)
[2019-02-15] MEDS: DICYCLOMINE 10 MG CAP PO PRN (08:51)
--- NOTE | 2019-02-15 11:03 | P.GSCN ---
History of Present Illness Consult date: 02/15/19 History of present illness: This is a 44-year-old male well known to my service have been seen in the clinic as an outpatient. I was working him up for his right upper quadrant pain. He has a normal ultrasound and a normal HIDA scan. He underwent EGD last month showed mild duodenitis and biopsies were negative for H. pylori he was started on omeprazole which doesn't seem to have helped. He denies any ulcer or other explanation for his abdominal pain. Patient states his pain is more in his back wrapping around to the front now. He denies nausea vomiting. He is passing normal bowel movements she's tolerating a diet he denies any association of the pain with eating. Past Medical History Past Medical History: No Reported History History of Any Multi-Drug Resistant Organisms: None Reported Past Surgical History: Back Surgery Past Anesthesia/Blood Transfusion Reactions: No Reported Reaction Past Psychological History: No Psychological Hx Reported Smoking Status: Never smoker Past Alcohol Use History: Occasional Past Drug Use History: None Reported - Past Family History Father Additional Family Medical History / Comment(s): parkinsons/dementia Mother Family Medical History: Thyroid Disorder Additional Family Medical History / Comment(s): pacer Brother(s) Family Medical History: No Reported History Son(s) Family Medical History: No Reported History Daughter(s) Family Medical History: No Reported History Medications and Allergies Home Medications Medication Instructions Recorded Confirmed Type Omeprazole 40 mg PO DAILY 02/12/19 02/13/19 History Pregabalin [Lyrica] 75 mg PO BID 02/12/19 02/13/19 History Allergies Allergy/AdvReac Type Severity Reaction Status Date / Time No Known Allergies Allergy Verified 02/13/19 00:19 Surgical - Exam Osteopathic Statement: *. No significant issues noted on an osteopathic structural exam other than those noted in the History and Physical/Consult. Vital Signs Temp Pulse Resp BP Pulse Ox 98.0 F 115 H 20 145/83 100 02/12/19 19:51 02/12/19 19:51 02/12/19 19:51 02/12/19 19:51 02/12/19 19:51 - General well developed, well nourished, no distress - Respiratory normal expansion, normal respiratory effort - Cardiovascular Rhythm: regular - Abdomen Abdomen: soft, non tender - Neurologic normal coordination, normal sensation - Psychiatric oriented to time, oriented to person, oriented to place Results - Labs 02/12/19 20:24 02/12/19 20:24 Assessment and Plan Assessment: Back and abdominal pain Plan: Patient does not have any indication for surgical intervention at this time. His previous workup of his gallbladder has all been negative. EGD did not have any abnormalities that explain his pain. I recommend he continues on his PPI. He is being seen by orthospine regarding his back pain.
--- NOTE | 2019-02-15 13:14 | P.CNOR ---
History of Present Illness - [facility] Consult date: 02/15/19 Requesting physician: Eduar Cummings Consult reason: other (Right anterior inferior rib pain radiating to the thorac ic spine) History of present illness: Patient is a very pleasant 44-year-old male who is seen at bedside for further evaluation in regards to thoracic/rib pain. Patient is known to have previously undergone an L5-S1 laminectomy and decompression with discectomy performed on 10/09/[address] Contreras. He states over the past month he has been experiencing significant pain along the anterior inferior ribs radiating around the rib cage towards his thoracic spine. Initially the pain was centered along the inferior ribs by the diaphragm. He felt his symptoms were stemming from his gallbladder. He presented to the emergency department for further evaluation. He has presented to the emergency department multiple times due to his symptoms. He states he has undergone extensive outpatient workup with Dr. Bentley without any significant findings. He states his symptoms became severe on 02/12/2019 causing anxiety. At that time he is having difficulty breathing was experiencing numbness and tingling in hands and feet. He states he does not hav e difficulty with anxiety. He states this was the first time he was experiencing these sensations. He was found to have hypocalcemia as well that was felt to be due to hyperventilation during his admission. He has had an MRI of the thoracic and lumbar spine. He states his symptoms have had some improvement since his admittance but continue to be present. He states his symptoms have been better in the morning and worsen throughout the day. He is currently denying any significant lower extremity weakness or radiculopathy. He is not complaining of weakness or radiculopathy in the upper extremities. He continues to complain his pain is most significant at the right anterior inferior ribs radiating around to the thoracic spine. He denies any injuries. He states he has had some increased stress since November 2018. He is unsure if the stress has had any impact on the cause of his symptoms. He's been missing work due to his symptoms. Patient states he has been taking omeprazole in the outpatient setting but is unsure of its benefit. He is currently receiving prednisone, Naprosyn, and Ultram as prescribed for pain control by medicine. Patient states he has also followed his primary care provider for further evaluation and states he was treated for internal shingles without significant improvement of his symptoms. Past Medical History Past Medical History: No Reported History History of Any Multi-Drug Resistant Organisms: None Reported Past Surgical History: Back Surgery Past Anesthesia/Blood Transfusion Reactions: No Reported Reaction Past Psychological History: No Psychological Hx Reported Smoking Status: Never smoker Past Alcohol Use History: Occasional Past Drug Use History: None Reported - Past Family History Father Additional Family Medical History / Comment(s): parkinsons/dementia Mother Family Medical History: Thyroid Disorder Additional Family Medical History / Comment(s): pacer Brother(s) Family Medical History: No Reported History Son(s) Family Medical History: No Reported History Daughter(s) Family Medical History: No Reported History Medications and Allergies Home Medications Medication Instructions Recorded Confirmed Type Omeprazole 40 mg PO DAILY 02/12/19 02/13/19 History Pregabalin [Lyrica] 75 mg PO BID 02/12/19 02/13/19 History Acetaminophen Tab [Tylenol] 500 mg PO Q6HR tab 02/15/19 Rx Baclofen 5 mg PO Q8H PRN #15 tablet 02/15/19 Rx Naproxen [Naprosyn] 250 mg PO TID #15 tab 02/15/19 Rx predniSONE 0 mg PO DIRECTED #10 tab 02/15/19 Rx Allergies Allergy/AdvReac Type Severity Reaction Status Date / Time No Known Allergies Allergy Verified 02/13/19 00:19 Physical Examination Physical exam: Patient is awake, alert, and oriented 3 Vital signs stable Good chest excursion with deep inspiration and expiration Abdomen soft nontender Examination of thoracic and lumbar spine reveals skin is intact with no abrasions, aspirations, or bruises; no erythema, purulence or signs of infection Examination of the right ribs does not show any erythema, bruising, lacerations, or obvious sign of infection No pain on palpation over the thoracic spine or lumbar spines No pain with palpation over the right ribs anteriorly, laterally, or posteriorly Evidence of a well healed incision along the midline at the lumbosacral junction Dorsiflexion, plantarflexion, and extensor hallucis longus positive sustained bilaterally Lower extremity strength positive sustained bilaterally with active range of motion of the bilateral lower extremities without difficulty Neurovascularly intact Results Pertinent Studies: X-rays the thoracic spine taken on 02/14/2019: Negative thoracic spine exam; Ove rall alignment is adequate maintained; intervertebral disc spacing is well- maintained; no evidence of paraspinal mass MRI of the thoracic and lumbar spines taken on 02/13/2019: Evidence of very small syrinx of the thoracic spinal cord at T6 and T7 of uncertain significance; no underlying cord mass evident; thoracic disc spacing appears to be fairly normal; no evidence of thoracic paraspinal mass, compression fracture deformity, or spinal canal stenosis; thoracic and lumbar vertebrae alignment appeared to be fairly well maintained; L5-S1 degenerative disc disease, disc desiccation, and posterior disc herniation without significant impingement of the lumbar nerve roots; evidence of previous right-sided L5 hemilaminectomy defect; no evidence of lumbar compression fracture deformity; small posterior disc fusions at C3-4 and C5-6 - Labs Labs: H & H 02/12/19 Range/Units 20:24 Hgb 15.2 (13.0-17.5) gm/dL Hct 42.2 (39.0-53.0) % Coagulation 02/12/19 Range/Units 20:24 INR 0.9 (<1.2) Result Diagrams: 02/12/19 20:24 02/12/19 20:24 Assessment and Plan Assessment: Assessment: Right anterior inferior rib pain with radiation to the thoracic spine Right lower rib musculoskeletal pain T6 and T7 small cord syrinx History of previous L5-S1 laminectomy decompression with discectomy performed on 10/09/2008 L5-S1 degenerative disc disease and disc herniation without stenosis Anxiety resolved (1) History of lumbosacral spine surgery Status: Acute Code(s): Z98.890 - OTHER SPECIFIED POSTPROCEDURAL STATES SNOMED Code(s): 360320982 (2) Disc degeneration, lumbosacral Status: Acute Code(s): M51.37 - OTHER INTERVERTEBRAL DISC DEGENERATION, LUMBOSACRAL REGION SNOMED Code(s): 79096848 (3) Rib pain on right side Status: Acute Code(s): R07.81 - PLEURODYNIA SNOMED Code(s): 199325141 (4) Musculoskeletal pain Status: Acute Code(s): M79.18 - MYALGIA, OTHER SITE SNOMED Code(s): 163494059 (5) Thoracic spine pain Status: Acute Code(s): M54.6 - PAIN IN THORACIC SPINE SNOMED Code(s): 037933913 (6) Anxiety about health Status: Acute Code(s): F41.8 - OTHER SPECIFIED ANXIETY DISORDERS SNOMED Code(s): 322249127 (7) Syrinx of spinal cord Status: Acute Code(s): G95.0 - SYRINGOMYELIA AND SYRINGOBULBIA SNOMED Code(s): 847393016 Plan: Plan: 1. Patient has been discussed in detail with Dr. Barrera Contreras. Imaging has been reviewed by Dr. Barrera Contreras and myself.After further discussion with the patient, physical examination the patient, and reviewing imaging, we are not currently complaining for any acute surgical intervention in regards to his thoracic or lumbar spines. Patient has been experiencing significant right anterior rib pain that initially stayed in this location but has been radiating around the ribs to the thoracic spine. He has had significant workup by Dr. Bentley without any significant findings. Review of the imaging does not show any evidence of significant herniated nucleus pulposus or canal stenosis or neural foraminal stenosis at his thoracic or lumbar spines. His symptoms have been ongoing for the past month without injury. It is difficult to determine the exact cause of his symptoms. We discussed we could plan for consultation with pain management if his symptoms are unable to be controlled where he is unable to be discharged home. We did discuss if his symptoms are able to be stable and controlled with medication as prescribed by medicine, patient will be cleared for discharge from orthopedic spine standpoint. We do not feel he needs emergent surgical intervention as there are any current indications in which surgery would provide significant improvement of his symptoms. We'll plan to have him follow-up in the outpatient setting. Following discharge, patient may follow-up with Ruben Herbert PA-C or Dr. Barrera Contreras at [facility] in approximately 1-2 weeks for further evaluation. We also discussed his cord syrinx at T6 and T7 of unknown significance. It could be beneficial for him to have an MRI of the brain for further evaluation as to the possible cause or significance of this cord syrinx. This could be done with the patient still in the hospital or could be done in the outpatient setting. This plan has been discussed in detail with nursing as well. 2. Patient will continue be seen and examined by medicine for his other medical diagnoses Time with Patient: Greater than 30 (Including obtaining history, physical examination, reviewing of imaging, and dictation.)
--- NOTE | 2019-02-15 22:02 | P.DS ---
Providers Date of admission: 02/14/19 11:34 Expected date of discharge: 02/15/19 Attending physician: Eduar Cummings Consults: 02/12/19 23:02 Consult Physician Routine Consulting Provider: Amari Pelletier Consult Reason/Comments: GI Do you want consulting provider notified?: Yes 02/14/19 15:54 Consult Physician Routine Consulting Provider: Demi Rosales Consult Reason/Comments: severe back pain with radiation to abdomen Do you want consulting provider notified?: Yes 02/14/19 16:05 Consult Physician Routine Consulting Provider: Todd Bentley Consult Reason/Comments: abd pain Do you want consulting provider notified?: Yes Primary care physician: [place] Hospital Course: Hospital course: This is a 43-year-old patient who has had upper abdominal pain lasting for a few weeks off-and-on. Has had an extensive workup. Seen by both by general surgery and GI. Patient describes the pain in the upper abdomen below the rib cage goiter around her back to the spine. It's present most of the time. With acute exacerbations. No fever no chills. It is worse with movement. Not related to food intake. No fever no chills. No change in bowel pattern. Ultrasound computed tomography scan of the abdomen was unremarkable. HIDA scan was unremarkable. EGD was unremarkable.) Prilosec. All this was done as an outpatient. Patient did have thoracic x-rays done and also MRI of the spine. Patient's clinical picture and physical exam was compatible with thoracic radiculopathy. I gave the patient a cocktail of NSAIDs, antispasmodic, steroids. She responded well to send. Pain is significantly improved. Patient able to walk up and down the hallway. Patient also was seen by Dr. bentley from general surgery. Nothing surgical. Also seen by Dr. Slade rosales from orthopedic spine. To follow up in the office. Care was discussed at length with the patient. Questions were answered. Consultations: Dr. Delicia Murillo from GI Dr. Arora from orthopedic spine Dr. bentley from general surgery Physical examination: VITAL SIGNS: 97.9, 83, 18, 118-74, 94% room air GENERAL: Sitting up comfortable. EYES: Pupils equal. Conjunctiva normal. HEENT: External appearance of nose and ears normal, oral cavity grossly normal. NECK: JVD not raised; masses not palpable. HEART: First and second heart sounds are normal; no edema. LUNGS: Respiratory rate normal; clear to auscultation. ABDOMEN: Soft, nontender, liver spleen not palpable, no masses palpable. MUSCULOSKELETAL: Some tenderness over the lower thoracic spine, reproducible pain INVESTIGATIONS, reviewed in the clinical context: White count 6.6 hemoglobin 15.2 potassium 3.4 creatinine 1.06 Thoracolumbar spine MRI-mild posterior L5-S1 disc herniation without significant impingement on the low lumbar nerve root. Very small syrinx of the thoracic spinal cord at T6, T7 level level of uncertain significance. Assessment: -Possible radicular pain from thoracic spine. -Obesity BMI 31.6 -GERD Disposition: Home Patient Condition at Discharge: Stable Plan - Discharge Summary Discharge Rx Participant: Yes New Discharge Prescriptions: New Baclofen 5 mg PO Q8H PRN #15 tablet PRN Reason: Spasms Naproxen [Naprosyn] 250 mg PO TID #15 tab predniSONE 0 mg PO DIRECTED #10 tab Acetaminophen Tab [Tylenol] 500 mg PO Q6HR tab Continue Pregabalin [Lyrica] 75 mg PO BID Omeprazole 40 mg PO DAILY Discharge Medication List Omeprazole 40 mg PO DAILY 02/12/19 [History] Pregabalin [Lyrica] 75 mg PO BID 02/12/19 [History] Acetaminophen Tab [Tylenol] 500 mg PO Q6HR tab 02/15/19 [Rx] Baclofen 5 mg PO Q8H PRN #15 tablet 02/15/19 [Rx] Naproxen [Naprosyn] 250 mg PO TID #15 tab 02/15/19 [Rx] predniSONE 0 mg PO DIRECTED #10 tab 02/15/19 [Rx] Follow up Appointment(s)/Referral(s): Nathan Berman MD [Primary Care Provider] - 1 Week Ruben Herbert PAC [PHYSICIAN [employer]] - 2 Weeks (Patient may follow-up with Ruben Herbert PA-C or Dr. Barrera Rosales at [facility] in 1-2 weeks following discharge. ) Patient Instructions/Handouts: Abdominal Pain (ED) Discharge Disposition: HOME SELF-CARE
== END 2019-02-15 12:58 | disposition home or self-care (01) ==
LOC: EC 19:48 → 1SOBS 23:02 → UNDOADMOB 23:02 → OBSVTOIN 02-14 11:34 → INTOOBSV 02-14 11:34 → UNDODISIN 02-15 12:58
PROVIDERS: ADMIT Hospitalist; ATTEND Hospitalist
DX: R10.11 Right upper quadrant pain (principal); M54.6 Pain in thoracic spine; G95.0 Syringomyelia and syringobulbia; E87.6 Hypokalemia; F41.9 Anxiety disorder, unspecified; K21.9 Gastro-esophageal reflux disease without esophagitis; K29.80 Duodenitis without bleeding; M47.817 Spondylosis without myelopathy or radiculopathy, lumbosacral region; M51.27 Other intervertebral disc displacement, lumbosacral region; M50.21 Other cervical disc displacement, high cervical region; M51.36 Other intervertebral disc degeneration, lumbar region; M51.37 Other intervertebral disc degeneration, lumbosacral region; E66.9 Obesity, unspecified; Z68.31 Body mass index [BMI] 31.0-31.9, adult; E83.51 Hypocalcemia; B02.9 Zoster without complications; Z79.899 Other long term (current) drug therapy; Z82.0 Family history of epilepsy and other diseases of the nervous system; Z83.49 Family history of other endocrine, nutritional and metabolic diseases
CPT/HCPCS: 96361 ×2; 96375 ×3; 96376 ×2; 96374; 99285; 36415; 93005; 85379; 83880; 80053; 83690; 83735; 84484; 85025; 85610; 85730; 72070; 71046; 72157; 72158; G0378 ×4; J2060 ×2; J2270 ×3; J2930; J2405; J1885; J7512 ×2; C9113 ×2; A9585

== ENCOUNTER 2019-02-20 12:30 | Inpatient (IN) | payer BC ==
[2019-02-20 13:51] LABS: Basophils % (A) 0 %; Eosinophils # (A) 0.1 k/uL (0-0.7); Eosinophils % (A) 1 %; HCT 42.4 % (39.0-53.0); HGB 15.4 gm/dL (13.0-17.5); Lymphocytes # (A) 1.1 k/uL (1.0-4.8); Lymphocytes % (A) 16 %; MCH 30.4 pg (25.0-35.0); MCHC 36.2 g/dL (31.0-37.0); MCV 83.9 fL (80.0-100.0); Mean Platelet Volume 6.1; Monocytes # (A) 0.4 k/uL (0-1.0); Monocytes % (A) 5 %; Neutrophils # (A) 5.3 k/uL (1.3-7.7); Neutrophils % (A) 76 %; Platelet Count 246 k/uL (150-450); RBC 5.06 m/uL (4.30-5.90); RDW 12.6 % (11.5-15.5); WBC 6.9 k/uL (3.8-10.6)
[2019-02-20 13:52] LABS: Appearance,Urine Clear (Clear); Bilirubin,Urine Negative (Negative); Blood,Urine Negative (Negative); Color,Urine Light Yellow; Glucose,Urine (UA) Negative (Negative); Ketones,Urine Negative (Negative); Leukocyte Esterase,Urine Negative (Negative); Nitrite,Urine Negative (Negative); Protein,Urine Negative (Negative); Specific Gravity,Urine 1.008 (1.001-1.035); Urobilinogen,Urine <2.0 mg/dL (<2.0)
[2019-02-20 13:56] LABS: ALT 48 U/L (21-72); AST 28 U/L (17-59); African American GFR (CKD) >90 (>60 ml/min/1.73 sqM); Albumin 4.5 g/dL (3.5-5.0); Alkaline Phosphatase 81 U/L (38-126); Amylase 57 U/L (30-110); Anion Gap 10 mmol/L; Blood Urea Nitrogen 20 mg/dL (9-20); Calcium 9.4 mg/dL (8.4-10.2); Carbon Dioxide 26 mmol/L (22-30); Chloride 104 mmol/L (98-107); Glucose 96 mg/dL (74-99); Potassium 3.9 mmol/L (3.5-5.1); Sodium 140 mmol/L (137-145); Total Bilirubin 1.1 mg/dL (0.2-1.3); Total Protein 7.3 g/dL (6.3-8.2)
[2019-02-20] MEDS ORDERED: KETOROLAC 30 MG/ML 1 ML VIAL IVP STA (14:18)
[2019-02-20] MEDS ORDERED: ONDANSETRON 4 MG/2 ML VIAL IVP STA (14:18)
[2019-02-20] MEDS ORDERED: MORPHINE SULFATE 4 MG/ML SYRINGE IVP STA (14:18)
[2019-02-20] MEDS ORDERED: SODIUM CHLORIDE 0.9% 1,000 ML IV ONE (14:18)
--- NOTE | 2019-02-20 15:39 | ED ---
Abdominal Pain HPI <Tulio Mooney - Last Filed: 02/20/19 16:59> - General Source: patient, RN notes reviewed, old records reviewed Mode of arrival: wheelchair Limitations: no limitations <Ro Fritz - Last Filed: 02/20/19 17:11> - General Chief Complaint: Abdominal Pain Stated Complaint: Abd pain, RT arm & facial numbness Time Seen by Provider: 02/20/19 13:42 - History of Present Illness Initial Comments: Patient is a 44-year-old male presents for urgency department today for my reevaluation for right upper quadrant abdominal pain. He reports his been having this pain since beginning of December. He was seen in the emergency department and admitted last week and he was hospitalized for 3 days. Patient reports that there is no significant conclusion for the results of this pain, but reports that he has had MRIs of his spine, and has had multiple testing on his gallbladder. Patient states he still contents other something wrong with his gallbladder. He was occasional nausea. He was home for the past 2 days but then persisted to have some worsening pain as of today. He did have pizza for dinner last night. Patient also complains that sometimes he gets tingling into his right upper extremity around his mouth. He denies any history of significant anxiety lately. (Ro Fritz) - Related Data Home Medications Medication Instructions Recorded Confirmed Omeprazole 40 mg PO DAILY 02/12/19 02/13/19 Pregabalin [Lyrica] 75 mg PO BID 02/12/19 02/13/19 Previous Rx's Medication Instructions Recorded Acetaminophen Tab [Tylenol] 500 mg PO Q6HR tab 02/15/19 Baclofen 5 mg PO Q8H PRN #15 tablet 02/15/19 Naproxen [Naprosyn] 250 mg PO TID #15 tab 02/15/19 predniSONE 0 mg PO DIRECTED #10 tab 02/15/19 Allergies Allergy/AdvReac Type Severity Reaction Status Date / Time No Known Allergies Allergy Verified 02/20/19 12:46 Review of Systems ROS Other: All systems not noted in ROS Statement are negative. <Tulio Mooney - Last Filed: 02/20/19 16:59> ROS Other: All systems not noted in ROS Statement are negative. <Ro Fritz - Last Filed: 11/06/19 17:11> ROS Statement: Those systems with pertinent positive or pertinent negative responses have been documented in the HPI. Past Medical History Past Medical History: No Reported History History of Any Multi-Drug Resistant Organisms: None Reported Past Surgical History: Back Surgery Past Anesthesia/Blood Transfusion Reactions: No Reported Reaction Past Psychological History: No Psychological Hx Reported Smoking Status: Never smoker Past Alcohol Use History: Occasional Past Drug Use History: None Reported - Past Family History Father Additional Family Medical History / Comment(s): parkinsons/dementia Mother Family Medical History: Thyroid Disorder Additional Family Medical History / Comment(s): pacer Brother(s) Family Medical History: No Reported History Son(s) Family Medical History: No Reported History Daughter(s) Family Medical History: No Reported History <Ro Fritz - Last Filed: 02/20/19 17:11> General Exam Limitations: no limitations General appearance: alert Head exam: Present: atraumatic, normocephalic, normal inspection Eye exam: Present: normal appearance, PERRL, EOMI. Absent: scleral icterus, conjunctival injection, periorbital swelling ENT exam: Present: normal exam, mucous membranes moist Neck exam: Present: normal inspection. Absent: tenderness, meningismus, lymphadenopathy Respiratory exam: Present: normal lung sounds bilaterally. Absent: respiratory distress, wheezes, rales, rhonchi, stridor Cardiovascular Exam: Present: regular rate, normal rhythm, normal heart sounds. Absent: systolic murmur, diastolic murmur, rubs, gallop, clicks GI/Abdominal exam: Present: soft, tenderness (Upper quadrant tenderness), normal bowel sounds. Absent: distended, guarding, rebound, rigid Extremities exam: Present: normal inspection, full ROM, normal capillary refill. Absent: tenderness, pedal edema, joint swelling, calf tenderness Back exam: Present: normal inspection Neurological exam: Present: alert, oriented X3, CN II-XII intact Psychiatric exam: Present: normal affect, normal mood Skin exam: Present: warm, dry, intact, normal color. Absent: rash <Ro Fritz - Last Filed: 02/20/19 17:11> - General Exam Comments Initial Comments: 44 year old mal,e no distress. (Ro Fritz) Course <Tulio Mooney - Last Filed: 02/20/19 16:59> Vital Signs 02/20/19 12:42 Temperature 98.2 F Pulse Rate 90 Respiratory 20 Rate Blood Pressure 121/84 O2 Sat by Pulse 98 Oximetry - Reevaluation(s) Reevaluation #1: 02/20/19 16:59 Patient having continuing pain. Chart and results were reviewed. Case was also discussed with practitioner Ro. Case was discussed with Dr. Phoenix, who will admit for Dr. rich. (Tulio Mooney) Medical Decision Making - Lab Data Result diagrams: 02/20/19 13:26 02/20/19 13:26 <Tulio Mooney - Last Filed: 02/20/19 16:59> - Lab Data Result diagrams: 02/20/19 13:26 02/20/19 13:26 - Radiology Data Radiology results: report reviewed <Ro Fritz - Last Filed: 02/20/19 17:11> - Medical Decision Making 44-year-old male presented today for right upper quadrant abdominal pain, some radiation towards his back. He's been having this pain FOR THE PAST 2 MONTHS. HE WAS ADMITTED AND DISCHARGED EARLIER THIS WEEK. PATIENT REPORTS THAT HE HAS HAD MULTIPLE TESTS DONE WITHOUT A SIGNIFICANT SOURCE FOR HIS PAIN BUT PATIENT IS QUITE SURE THAT LIKELY HIS GALLBLADDER. HE REPORTS THAT HE DID EAT SOME PIZZA LAST NIGHT WHICH MAY TRIGGER THIS. HE'S BEEN TAKING HIS MEDICATIONS PRESCRIBED NORMALLY. BLOOD WORK TODAY WAS UNREMARKABLE. DUE TO PERSISTENT PAIN TENDERNESS TO PATIENT BEING CONCERNED FOR GALLBLADDER ULTRASOUND WAS COMPLETED. TODAY THERE IS EVIDENCE OF GALLBLADDER SLUDGE. I DISCUSSED THE CASE WITH DR. MOONEY FROM DISCUSSED THE CASE WITH DR. Romero WHO IS COVERING FOR PATIENT'S SURGEON DR. RICH. PATIENT WILL BE ADMITTED, REMAIN NOTHING BY MOUTH AND PAIN MANAGEMENT THIS TIME. (Ro Fritz) - Lab Data Lab Results 02/20/19 02/20/19 02/20/19 Range/Units 13:26 13:26 13:26 WBC 6.9 (3.8-10.6) k/uL RBC 5.06 (4.30-5.90) m/uL Hgb 15.4 (13.0-17.5) gm/dL Hct 42.4 (39.0-53.0) % MCV 83.9 (80.0-100.0) fL MCH 30.4 (25.0-35.0) pg MCHC 36.2 (31.0-37.0) g/dL RDW 12.6 (11.5-15.5) % Plt Count 246 (150-450) k/uL Neutrophils % 76 % Lymphocytes % 16 % Monocytes % 5 % Eosinophils % 1 % Basophils % 0 % Neutrophils # 5.3 (1.3-7.7) k/uL Lymphocytes # 1.1 (1.0-4.8) k/uL Monocytes # 0.4 (0-1.0) k/uL Eosinophils # 0.1 (0-0.7) k/uL Basophils # 0.0 (0-0.2) k/uL Sodium 140 (137-145) mmol/L Potassium 3.9 (3.5-5.1) mmol/L Chloride 104 (98-107) mmol/L Carbon Dioxide 26 (22-30) mmol/L Anion Gap 10 mmol/L BUN 20 (9-20) mg/dL Creatinine 0.88 (0.66-1.25) mg/dL Est GFR (CKD-EPI)AfAm >90 (>60 ml/min/1.73 sqM) Est GFR (CKD-EPI)NonAf >90 (>60 ml/min/1.73 sqM) Glucose 96 (74-99) mg/dL Calcium 9.4 (8.4-10.2) mg/dL Total Bilirubin 1.1 (0.2-1.3) mg/dL AST 28 (17-59) U/L ALT 48 (21-72) U/L Alkaline Phosphatase 81 (38-126) U/L Troponin I (0.000-0.034) ng/mL Total Protein 7.3 (6.3-8.2) g/dL Albumin 4.5 (3.5-5.0) g/dL Amylase 57 (30-110) U/L Lipase 174 (23-300) U/L Urine Color Light Yellow Urine Appearance Clear (Clear) Urine pH 6.0 (5.0-8.0) Ur Specific [place] 1.008 (1.001-1.035) Urine Protein Negative (Negative) Urine Glucose (UA) Negative (Negative) Urine Ketones Negative (Negative) Urine Blood Negative (Negative) Urine Nitrite Negative (Negative) Urine Bilirubin Negative (Negative) Urine Urobilinogen <2.0 (<2.0) mg/dL Ur Leukocyte Esterase Negative (Negative) 02/20/19 Range/Units 13:36 WBC (3.8-10.6) k/uL RBC (4.30-5.90) m/uL Hgb (13.0-17.5) gm/dL Hct (39.0-53.0) % MCV (80.0-100.0) fL MCH (25.0-35.0) pg MCHC (31.0-37.0) g/dL RDW (11.5-15.5) % Plt Count (150-450) k/uL Neutrophils % % Lymphocytes % % Monocytes % % Eosinophils % % Basophils % % Neutrophils # (1.3-7.7) k/uL Lymphocytes # (1.0-4.8) k/uL Monocytes # (0-1.0) k/uL Eosinophils # (0-0.7) k/uL Basophils # (0-0.2) k/uL Sodium (137-145) mmol/L Potassium (3.5-5.1) mmol/L Chloride (98-107) mmol/L Carbon Dioxide (22-30) mmol/L Anion Gap mmol/L BUN (9-20) mg/dL Creatinine (0.66-1.25) mg/dL Est GFR (CKD-EPI)AfAm (>60 ml/min/1.73 sqM) Est GFR (CKD-EPI)NonAf (>60 ml/min/1.73 sqM) Glucose (74-99) mg/dL Calcium (8.4-10.2) mg/dL Total Bilirubin (0.2-1.3) mg/dL AST (17-59) U/L ALT (21-72) U/L Alkaline Phosphatase (38-126) U/L Troponin I <0.012 (0.000-0.034) ng/mL Total Protein (6.3-8.2) g/dL Albumin (3.5-5.0) g/dL Amylase (30-110) U/L Lipase (23-300) U/L Urine Color Urine Appearance (Clear) Urine pH (5.0-8.0) Ur Specific [place] (1.001-1.035) Urine Protein (Negative) Urine Glucose (UA) (Negative) Urine Ketones (Negative) Urine Blood (Negative) Urine Nitrite (Negative) Urine Bilirubin (Negative) Urine Urobilinogen (<2.0) mg/dL Ur Leukocyte Esterase (Negative) - Radiology Data Evidence of fatty any liver, gallbladder sludge as suggested. (Ro Fritz) Disposition <Tulio Mooney - Last Filed: 02/20/19 16:59> Time of Disposition: 17:11 <Ro Fritz - Last Filed: 02/20/19 17:11> Clinical Impression: RUQ pain, Sludge in gallbladder Disposition: ADMITTED IP TO THIS HOSP Condition: Good Referrals: Nathan Berman MD [Primary Care Provider] - 1-2 days
--- NOTE | 2019-02-20 16:35 | US ---
EXAMINATION TYPE: US gallbladder DATE OF EXAM: 02/20/2019 COMPARISON: US & CT 2018 CLINICAL HISTORY: pain, ruq . Abdomen pain x couple months, occasional nausea EXAM MEASUREMENTS: Liver Length: 16.0 cm Gallbladder Wall: 0.3 cm CBD: 0.3 cm Right Kidney: 11.2 x 5.5 x 4.9 cm Difficult and limited study due to patient body habitus Pancreas: limited by overlying midline bowel gas Liver: heterogeneous Gallbladder: low level echoes within dependant portion, wall measures wnl Evidence for sonographic Saini's sign: no CBD: visualized portions wnl, limited by overlying bowel gas Right Kidney: wnl IMPRESSION: 1. Fatty liver. 2. Gallbladder sludge suggested.
[2019-02-20] MEDS: SODIUM CHLORIDE 0.9% 1,000 ML IV SCH ×2 (17:00→18:07)
[2019-02-20] MEDS ORDERED: HYDROmorphone 1 MG/ML 1 ML SYRINGE IVP PRN (17:12)
[2019-02-20] MEDS ORDERED: ACETAMINOPHEN TAB 325 MG TAB PO PRN (17:12)
[2019-02-20] MEDS ORDERED: ONDANSETRON 4 MG/2 ML VIAL IVP PRN (17:12)
[2019-02-20] MEDS ORDERED: IBUPROFEN 400 MG TAB PO PRN (17:12)
[2019-02-20] MEDS ORDERED: NALOXONE 0.4 MG/ML 1 ML VIAL IV PRN (17:12)
[2019-02-20] MEDS: HYDROmorphone 0.5 MG/0.5 ML SYRINGE IVP PRN ×2 (18:55→21:54)
[2019-02-21] MEDS: HYDROmorphone 0.5 MG/0.5 ML SYRINGE IVP PRN ×5 (02:11→23:43)
[2019-02-21] MEDS: PANTOPRAZOLE 40 MG/10 ML VIAL IV SCH (07:37)
[2019-02-21] MEDS: SODIUM CHLORIDE 0.9% 1,000 ML IV SCH ×2 (07:39→21:25)
[2019-02-21] MEDS ORDERED: HEPARIN SODIUM,PORCINE 5,000 UNIT/ML 1 ML VIAL SQ STA (09:32)
--- NOTE | 2019-02-21 09:58 | P.GSHP ---
History of Present Illness H&P Date: 02/21/19 This patient's very well known to my service. He presented again to the emergency room with right upper quadrant pain. In the previous workup he's never had any gallbladder pathology is HIDA scan and ultrasound of all been normal. He was being worked up as an outpatient with orthospine is a possib ility for the cause of his right upper quadrant and back pain. He states that he had pizza and again having worsening right upper quadrant pain. He had a repeat ultrasound performed in the emergency department which did reveal some sludge in his gallbladder. Patient states he still having pain today. Denies nausea vomiting denies change in bowel movement denies fevers Past Medical History Past Medical History: No Reported History History of Any Multi-Drug Resistant Organisms: None Reported Past Surgical History: Back Surgery Past Anesthesia/Blood Transfusion Reactions: No Reported Reaction Past Psychological History: No Psychological Hx Reported Smoking Status: Never smoker Past Alcohol Use History: Occasional Past Drug Use History: None Reported - Past Family History Father Additional Family Medical History / Comment(s): parkinsons/dementia Mother Family Medical History: Thyroid Disorder Additional Family Medical History / Comment(s): pacer Brother(s) Family Medical History: No Reported History Son(s) Family Medical History: No Reported History Daughter(s) Family Medical History: No Reported History Medications and Allergies Home Medications Medication Instructions Recorded Confirmed Type Omeprazole 40 mg PO DAILY 02/12/19 02/20/19 History Baclofen 5 mg PO Q8H PRN #15 tablet 02/15/19 02/20/19 Rx Naproxen [Naprosyn] 250 mg PO TID #15 tab 02/15/19 02/20/19 Rx DULoxetine HCL [Cymbalta] 30 mg PO HS 02/20/19 02/20/19 History Allergies Allergy/AdvReac Type Severity Reaction Status Date / Time No Known Allergies Allergy Verified 02/20/19 17:28 Surgical - Exam Osteopathic Statement: *. No significant issues noted on an osteopathic structural exam other than those noted in the History and Physical/Consult. Vital Signs Temp Pulse Resp BP Pulse Ox 98.2 F 90 20 121/84 98 02/20/19 12:42 02/20/19 12:42 02/20/19 12:42 02/20/19 12:42 02/20/19 12:42 - General well developed, well nourished, no distress - Eyes PERRL - Respiratory normal expansion, normal respiratory effort - Cardiovascular Rhythm: regular - Abdomen Nondistended mild tenderness palpation right upper quadrant no rebound rigidity or guarding Abdomen: soft - Neurologic normal coordination, normal sensation Results - Labs 02/20/19 13:26 02/20/19 13:26 Diabetes panel 02/20/19 Range/Units 13:26 Sodium 140 (137-145) mmol/L Potassium 3.9 (3.5-5.1) mmol/L Chloride 104 (98-107) mmol/L Carbon Dioxide 26 (22-30) mmol/L BUN 20 (9-20) mg/dL Creatinine 0.88 (0.66-1.25) mg/dL Glucose 96 (74-99) mg/dL Calcium 9.4 (8.4-10.2) mg/dL AST 28 (17-59) U/L ALT 48 (21-72) U/L Alkaline Phosphatase 81 (38-126) U/L Total Protein 7.3 (6.3-8.2) g/dL Albumin 4.5 (3.5-5.0) g/dL Calcium panel 02/20/19 Range/Units 13:26 Calcium 9.4 (8.4-10.2) mg/dL Albumin 4.5 (3.5-5.0) g/dL Pituitary panel 02/20/19 Range/Units 13:26 Sodium 140 (137-145) mmol/L Potassium 3.9 (3.5-5.1) mmol/L Chloride 104 (98-107) mmol/L Carbon Dioxide 26 (22-30) mmol/L BUN 20 (9-20) mg/dL Creatinine 0.88 (0.66-1.25) mg/dL Glucose 96 (74-99) mg/dL Calcium 9.4 (8.4-10.2) mg/dL Adrenal panel 02/20/19 Range/Units 13:26 Sodium 140 (137-145) mmol/L Potassium 3.9 (3.5-5.1) mmol/L Chloride 104 (98-107) mmol/L Carbon Dioxide 26 (22-30) mmol/L BUN 20 (9-20) mg/dL Creatinine 0.88 (0.66-1.25) mg/dL Glucose 96 (74-99) mg/dL Calcium 9.4 (8.4-10.2) mg/dL Total Bilirubin 1.1 (0.2-1.3) mg/dL AST 28 (17-59) U/L ALT 48 (21-72) U/L Alkaline Phosphatase 81 (38-126) U/L Total Protein 7.3 (6.3-8.2) g/dL Albumin 4.5 (3.5-5.0) g/dL Assessment and Plan Assessment: Acute on chronic cholecystitis Plan: I had a lengthy discussion with the patient regarding his symptoms. Now that he does have some biliary sludge seen on ultrasound I discussed with him laparoscopic cholecystectomy risks benefits and alternatives including risks of bleeding infection damage surrounding tissue need for further operation and damage to common bile duct were all discussed the patient he stated he understood agreed and consented informed consent was obtained. I also discussed specifically with the patient that this may not relieve his right upper quadrant pain and that there could be another cause of his right upper quadrant pain. He also has been complaining of some paresthesias in his right arm for the last several weeks and he is following up with orthospine regarding these symptoms. Plan is to remain nothing by mouth on IV fluids and proceed with laparoscopic cholecystectomy
[2019-02-21] MEDS ORDERED: LACTATED RINGERS 1,000 ML IV ONE (10:39)
[2019-02-21] MEDS ORDERED: BUPIVACAINE (PF) 0.5% 30 ML VIAL SQ ONE ×3 (11:00→12:01)
[2019-02-21] MEDS ORDERED: KETOROLAC 30 MG/ML 1 ML VIAL ONE (11:05)
[2019-02-21] MEDS ORDERED: LIDOCAINE 1% INJ 10MG/ML (20 ML MDV) ONE (11:05)
[2019-02-21] MEDS ORDERED: PROPOFOL 10 MG/ML 20 ML VIAL IV ONE (11:05)
[2019-02-21] MEDS ORDERED: MIDAZOLAM 2 MG/2 ML VIAL ONE (11:05)
[2019-02-21] MEDS ORDERED: fentaNYL (PF) 50 MCG/ML 2 ML AMP ONE (11:05)
[2019-02-21] MEDS ORDERED: SUCCINYLCHOLINE CHLORIDE 100 MG/5 ML SYR IV ONE (11:05)
[2019-02-21] MEDS ORDERED: HYDROmorphone (PF) 1 MG/ML ONE (11:05)
[2019-02-21] MEDS ORDERED: ROCURONIUM BROMIDE 10 MG/ML 10 ML VIAL IV ONE (11:05)
[2019-02-21] MEDS ORDERED: GLYCOPYRROLATE 0.2 MG/ML 2 ML VIAL ONE (11:05)
[2019-02-21] MEDS ORDERED: NEOSTIGMINE 1 MG/ML 10 ML VIAL ONE (11:05)
[2019-02-21] MEDS ORDERED: SODIUM CHLORIDE 0.9% 100 ML with ceFAZolin 2,000 MG IV ONE ×4 (11:18)
--- NOTE | 2019-02-21 12:19 | P.OP ---
Date of Procedure: 02/21/19 Preoperative Diagnosis: Cholecystitis Postoperative Diagnosis: Cholecystitis Procedure(s) Performed: Laparoscopic cholecystectomy Anesthesia: TEA Surgeon: Todd Bentley Estimated Blood Loss (ml): 5 Condition: stable Disposition: PACU Description of Procedure: Patient is brought operative suite remained in the supine position underwent general endotracheal anesthesia per Department of anesthesia timeout performed correct patient correct procedure correct site was verified patient was prepped and draped usual sterile fashion. A 12 mm incision was made just lateral to the umbilicus and using a Visiport the abdomen was entered under direct visualization. Abdomen was insufflated no injuries were noted 35 mm ports placed the right upper quadrant. A letter was grasped and retracted bluntly the adhesions to the gallbladder were taken down. The cystic duct and cystic artery were skeletonized and a critical view was obtained they were duly clipped and ligated. Gallbladder was taken off the liver bed using Bovie electrocautery. It was removed in Endo Catch bag at the 12 mm port site. Gallbladder fossa was inspected hemostasis was noted. The 12 mm port was removed and the fascia was closed with 0 Vicryl in a interrupted fashion with the aid of a Favio-Tisha suture passer. 5 mm ports removed under direct visualization abdomen was desufflated hemostasis was noted the skin incisions were closed with 4-0 Monocryl suture and skin glue patient artery procedure well no apparent compli cations
[2019-02-21] MEDS: HYDROmorphone 1 MG/ML 1 ML SYRINGE IVP ONE ×4 (12:28→12:51)
[2019-02-21] MEDS ORDERED: METOCLOPRAMIDE 5 MG/ML 2 ML VIAL IVP PRN (19:31)
[2019-02-21] MEDS: ONDANSETRON 4 MG/2 ML VIAL IVP PRN (23:41)
[2019-02-22] MEDS: HYDROmorphone 0.5 MG/0.5 ML SYRINGE IVP PRN ×6 (02:51→22:48)
[2019-02-22] MEDS: PANTOPRAZOLE 40 MG/10 ML VIAL IV SCH (07:30)
[2019-02-22] MEDS: SODIUM CHLORIDE 0.9% 1,000 ML IV SCH ×3 (07:33→22:48)
[2019-02-22] MEDS: ONDANSETRON 4 MG/2 ML VIAL IVP PRN ×2 (08:44→20:37)
[2019-02-22 10:05] LABS: African American GFR (CKD) >90 (>60 ml/min/1.73 sqM); Albumin 3.6 g/dL (3.5-5.0); Anion Gap 6 mmol/L; Carbon Dioxide 30 mmol/L (22-30); Chloride 103 mmol/L (98-107); Glucose 87 mg/dL (74-99); Potassium 3.7 mmol/L (3.5-5.1); Sodium 139 mmol/L (137-145); Total Protein 6.1 g/dL (6.3-8.2)
[2019-02-22 10:08] LABS: ALT 38 U/L (21-72); AST 23 U/L (17-59); Alkaline Phosphatase 63 U/L (38-126); Blood Urea Nitrogen 14 mg/dL (9-20); Calcium 8.6 mg/dL (8.4-10.2); Total Bilirubin 1.8 mg/dL (0.2-1.3)
--- NOTE | 2019-02-22 11:40 | P.PN ---
Subjective Progress Note Date: 02/22/19 Patient had NV yesterday likely secondary to anesthesia. He is feeling better today, complaining of some incisional pain near his periumbilical port site. Objective - Vital Signs Vital signs: Vital Signs Temp 98.0 F 02/22/19 07:00 Pulse 74 02/22/19 07:00 Resp 17 02/22/19 07:00 BP 111/73 02/22/19 07:00 Pulse Ox 95 02/22/19 07:00 Intake & Output 02/21/19 02/22/19 02/22/19 18:59 06:59 18:59 Intake Total 900 Output Total 5 Balance 895 Intake: IV 900 Output: Estimated Blood Loss 5 Other: Voiding Method Toilet Toilet # Voids 1 - Constitutional General appearance: Present: cooperative - Respiratory Details: nonlabored - Cardiovascular Rhythm: regular - Gastrointestinal Gastrointestinal Comment(s): S/ND. incisions CDI. Expected TTP - Psychiatric Psychiatric: Present: A&O x's 3 - Labs CBC & Chem 7: 02/20/19 13:26 02/22/19 09:24 Labs: Abnormal Lab Results - Last 24 Hours (Table) 02/22/19 Range/Units 09:24 Total Bilirubin 1.8 H (0.2-1.3) mg/dL Total Protein 6.1 L (6.3-8.2) g/dL Assessment and Plan Assessment: POD#1 lap cholecystectomy Plan: Patients T Bili was slightly elevated today, likely secondary to some passed sludge or small stones during surgery. Will plan to recheck tomorrow. NPO after midnight in case patients bili continues to rise and he needs ERCP.
[2019-02-22] MEDS: HYDROcodone/APAP 5-325MG 1 EACH TAB PO PRN ×2 (13:48→20:36)
[2019-02-23] MEDS: HYDROmorphone 0.5 MG/0.5 ML SYRINGE IVP PRN ×2 (04:35→07:58)
[2019-02-23 07:33] LABS: ALT 33 U/L (21-72); AST 24 U/L (17-59); African American GFR (CKD) >90 (>60 ml/min/1.73 sqM); Albumin 3.5 g/dL (3.5-5.0); Alkaline Phosphatase 64 U/L (38-126); Anion Gap 8 mmol/L; Blood Urea Nitrogen 11 mg/dL (9-20); Calcium 8.7 mg/dL (8.4-10.2); Carbon Dioxide 28 mmol/L (22-30); Chloride 105 mmol/L (98-107); Glucose 87 mg/dL (74-99); Potassium 3.8 mmol/L (3.5-5.1); Sodium 141 mmol/L (137-145); Total Bilirubin 1.4 mg/dL (0.2-1.3)
[2019-02-23 07:37] LABS: Basophils % (A) 0 %; Eosinophils # (A) 0.1 k/uL (0-0.7); Eosinophils % (A) 3 %; HCT 36.9 % (39.0-53.0); HGB 13.5 gm/dL (13.0-17.5); Lymphocytes % (A) 20 %; MCH 31.2 pg (25.0-35.0); MCHC 36.5 g/dL (31.0-37.0); MCV 85.6 fL (80.0-100.0); Mean Platelet Volume 5.8; Monocytes # (A) 0.3 k/uL (0-1.0); Monocytes % (A) 7 %; Neutrophils # (A) 3.5 k/uL (1.3-7.7); Neutrophils % (A) 69 %; Platelet Count 211 k/uL (150-450); RBC 4.32 m/uL (4.30-5.90); RDW 12.7 % (11.5-15.5); WBC 5.1 k/uL (3.8-10.6)
[2019-02-23] MEDS: SODIUM CHLORIDE 0.9% 1,000 ML IV SCH (08:04)
[2019-02-23] MEDS: PANTOPRAZOLE 40 MG TABLET PO SCH ×2 (08:42→12:32)
--- NOTE | 2019-02-23 11:24 | P.PN ---
Subjective Progress Note Date: 02/23/19 Patient still complaining of some incisional pain near his periumbilical port site. Objective - Vital Signs Vital signs: Vital Signs Temp 98.0 F 02/23/19 07:00 Pulse 78 02/23/19 07:00 Resp 18 02/23/19 07:00 BP 121/82 02/23/19 07:00 Pulse Ox 95 02/23/19 07:00 Intake & Output 02/22/19 02/23/19 02/23/19 18:59 06:59 18:59 Intake Total 1400 Balance 1400 Intake: Intake, IV Titration 1200 Amount Sodium Chloride 0.9% 1, 1200 000 ml @ 100 mls/hr IV . Q10H JENNIFRE Rx#:[id number] Oral 200 Other: Voiding Method Toilet Toilet # Voids 2 2 - Constitutional General appearance: Present: cooperative - Respiratory Details: Nonlabored - Cardiovascular Rhythm: regular - Gastrointestinal Gastrointestinal Comment(s): Soft mild tenderness palpation periumbilical port site. Nondistended - Psychiatric Psychiatric: Present: A&O x's 3 - Labs CBC & Chem 7: 02/23/19 06:44 02/23/19 06:44 Labs: Abnormal Lab Results - Last 24 Hours (Table) 02/23/19 02/23/19 Range/Units 06:44 06:44 Hct 36.9 L (39.0-53.0) % Total Bilirubin 1.4 H (0.2-1.3) mg/dL Total Protein 6.0 L (6.3-8.2) g/dL Assessment and Plan Assessment: POD#2 lap cholecystectomy Plan: Patients T Bili was improved, likely secondary to some passed sludge or small stones during surgery. Will plan to recheck tomorrow. May have low-fat diet as tolerated. Once tolerating diet patient can be discharged home likely tomorrow
[2019-02-23] MEDS ORDERED: MAGNESIUM HYDROXIDE 2,400 MG/10 ML CUP PO PRN (11:25)
[2019-02-23] MEDS: HYDROcodone/APAP 5-325MG 1 EACH TAB PO PRN ×3 (11:43→20:26)
[2019-02-23] MEDS: DOCUSATE 100 MG CAP PO SCH ×2 (12:32→20:27)
[2019-02-23 15:12] VITALS: RESP 16
[2019-02-24] MEDS: HYDROcodone/APAP 5-325MG 1 EACH TAB PO PRN ×3 (01:50→11:41)
[2019-02-24 07:10] VITALS: BP 129/76; PULSE 62; TEMP 97.9
[2019-02-24 07:15] LABS: ALT 55 U/L (21-72); AST 25 U/L (17-59); African American GFR (CKD) >90 (>60 ml/min/1.73 sqM); Albumin 3.6 g/dL (3.5-5.0); Alkaline Phosphatase 69 U/L (38-126); Anion Gap 6 mmol/L; Blood Urea Nitrogen 14 mg/dL (9-20); Carbon Dioxide 30 mmol/L (22-30); Chloride 104 mmol/L (98-107); Glucose 92 mg/dL (74-99); Potassium 3.6 mmol/L (3.5-5.1); Sodium 140 mmol/L (137-145); Total Bilirubin 1.4 mg/dL (0.2-1.3); Total Protein 6.1 g/dL (6.3-8.2)
[2019-02-24] MEDS: DOCUSATE 100 MG CAP PO SCH (07:15)
[2019-02-24] MEDS: PANTOPRAZOLE 40 MG TABLET PO SCH (07:15)
== END 2019-02-24 11:59 | disposition home or self-care (01) | DRG 419 ==
LOC: EC 12:30 → 4SSUR 16:59 → OBSVTOIN 02-22 13:46
PROVIDERS: ADMIT Student in an Organized Health Care Education/Training Program; ATTEND Student in an Organized Health Care Education/Training Program
PROC: 0FT44ZZ Resection of Gallbladder, Percutaneous Endoscopic Approach (ICD-10-PCS; principal; 2019-02-21 07:30)
DX: K81.2 Acute cholecystitis with chronic cholecystitis (principal); K82.8 Other specified diseases of gallbladder; T41.45XA Adverse effect of unspecified anesthetic, initial encounter; R20.2 Paresthesia of skin; Y92.230 Patient room in hospital as the place of occurrence of the external cause; Z79.899 Other long term (current) drug therapy; Z82.0 Family history of epilepsy and other diseases of the nervous system; Z98.890 Other specified postprocedural states; Z81.8 Family history of other mental and behavioral disorders; Z83.49 Family history of other endocrine, nutritional and metabolic diseases
CPT/HCPCS: 36415; 76705; 80053; 81003; 82150; 83690; 84484; 85025; 88304; 93005; 96361; 96374; 96375; 99285

== ENCOUNTER → 2019-09-06 | Outpatient (CLI) | payer BC | END | disposition home or self-care (01) | LOC: LABWHC1 12:38 | PROVIDERS: ATTEND Physical Medicine & Rehabilitation | DX: U07.1 COVID-19 (principal) | CPT/HCPCS: 87635 ==

== ENCOUNTER 2021-01-27 12:29 | Emergency (ER) | payer BC ==
[2021-01-27 12:42] VITALS: TEMP 98.8
--- NOTE | 2021-01-27 12:59 | ED ---
General Adult HPI - General Chief complaint: Neuro Symptoms/Deficit Stated complaint: Lt side numbness,Dizzy Time Seen by Provider: 01/27/21 12:40 Source: patient, RN notes reviewed, old records reviewed Mode of arrival: wheelchair Limitations: no limitations - History of Present Illness Initial comments: This is a 45-year-old male who presents emergency Department stating he has some tingling on the left side of his face and tingling in both of his arms. 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 Patient states he didn't eat or do anything abnormally today patient states she was just sitting there and he felt a tingling sensation come over him.[place] a little lightheaded. Patient states he also noted that his heart felt like it was racing. Patient denies any recent fever chills or cough per patient denies abdominal pain patient denies nausea vomiting diarrhea. Patient states he had a mild headache today which is not unusual. Patient denies any focal numbness or weakness. Patient denied any chest pain. - Related Data Home Medications Medication Instructions Recorded Confirmed Omeprazole 40 mg PO DAILY 02/12/19 02/20/19 DULoxetine HCL [Cymbalta] 30 mg PO HS 02/20/19 02/20/19 Previous Rx's Medication Instructions Recorded Baclofen 5 mg PO Q8H PRN #15 tablet 02/15/19 Naproxen [Naprosyn] 250 mg PO TID #15 tab 02/15/19 Docusate [Colace] 100 mg PO DAILY 10 Days #10 capsule 02/24/19 HYDROcodone/APAP 5-325MG [[place] 1 tab PO Q4HR PRN 3 Days #18 tab 02/24/19 5-325] Allergies Allergy/AdvReac Type Severity Reaction Status Date / Time No Known Allergies Allergy Verified 01/27/21 12:39 Review of Systems ROS Statement: Those systems with pertinent positive or pertinent negative responses have been documented in the HPI. ROS Other: All systems not noted in ROS Statement are negative. Past Medical History Past Medical History: No Reported History History of Any Multi-Drug Resistant Organisms: None Reported Past Surgical History: Back Surgery Past Anesthesia/Blood Transfusion Reactions: No Reported Reaction Past Psychological History: No Psychological Hx Reported Smoking Status: Never smoker Past Alcohol Use History: Occasional Past Drug Use History: None Reported - Past Family History Father Additional Family Medical History / Comment(s): parkinsons/dementia Mother Family Medical History: Thyroid Disorder Additional Family Medical History / Comment(s): pacer Brother(s) Family Medical History: No Reported History Son(s) Family Medical History: No Reported History Daughter(s) Family Medical History: No Reported History General Exam - General Exam Comments Initial Comments: GENERAL: Patient is well-developed and well-nourished. Patient is nontoxic and well- hydrated and is in no acute distress. ENT: Neck is soft and supple. No significant lymphadenopathy is noted. Oropharynx is clear. Moist mucous membranes. Neck has full range of motion without eliciting any pain. EYES: The sclera were anicteric and conjunctiva were pink and moist. Extraocular movements were intact and pupils were equal round and reactive to light. Eyelids were unremarkable. PULMONARY: Unlabored respirations. Good breath sounds bilaterally. No audible rales rhonchi or wheezing was noted. CARDIOVASCULAR There is a regular rate and rhythm without any murmurs gallops or rubs. ABDOMEN: Soft and nontender with normal bowel sounds. SKIN: Skin is clear with no lesions or rashes and otherwise unremarkable. NEUROLOGIC: Patient is alert and oriented x3. Cranial nerves II through XII are grossly intact. Motor and sensory are also intact. Normal speech, volume and content. Symmetrical smile. MUSCULOSKELETAL: Normal extremities with adequate strength and full range of motion. LYMPHATICS: No significant lymphadenopathy is noted PSYCHIATRIC: Normal psychiatric evaluation. Limitations: no limitations Course Vital Signs 01/27/21 01/27/21 12:39 14:19 Temperature 98.8 F Pulse Rate 90 81 Respiratory 16 17 Rate Blood Pressure 134/91 124/84 O2 Sat by Pulse 100 96 Oximetry Medical Decision Making - Medical Decision Making EKG shows normal sinus rhythm at 63 bpm CA interval is 162 QRS is 94 Q-T intervals 42 QTC is 411. Patient's EKG shows no ST segment elevation or depression. - Lab Data Result diagrams: 01/27/21 13:00 01/27/21 13:00 Lab Results 01/27/21 01/27/21 Range/Units 13:00 13:00 WBC 5.5 (3.8-10.6) k/uL RBC 4.90 (4.30-5.90) m/uL Hgb 14.8 (13.0-17.5) gm/dL Hct 41.8 (39.0-53.0) % MCV 85.4 (80.0-100.0) fL MCH 30.2 (25.0-35.0) pg MCHC 35.4 (31.0-37.0) g/dL RDW 12.3 (11.5-15.5) % Plt Count 226 (150-450) k/uL MPV 7.9 Hyperchromasia Slight Sodium 140 (137-145) mmol/L Potassium 3.9 (3.5-5.1) mmol/L Chloride 105 (98-107) mmol/L Carbon Dioxide 26 (22-30) mmol/L Anion Gap 9 mmol/L BUN 14 (9-20) mg/dL Creatinine 0.96 (0.66-1.25) mg/dL Est GFR (CKD-EPI)AfAm >90 (>60 ml/min/1.73 sqM) Est GFR (CKD-EPI)NonAf >90 (>60 ml/min/1.73 sqM) Glucose 98 (74-99) mg/dL Calcium 9.9 (8.4-10.2) mg/dL Magnesium 2.2 (1.6-2.3) mg/dL Total Bilirubin 1.5 H (0.2-1.3) mg/dL AST 42 (17-59) U/L ALT 37 (4-49) U/L Alkaline Phosphatase 101 (38-126) U/L Total Protein 7.7 (6.3-8.2) g/dL Albumin 4.7 (3.5-5.0) g/dL Disposition Clinical Impression: Paresthesias, Palpitations Disposition: HOME SELF-CARE Condition: Good Instructions (If sedation given, give patient instructions): Heart Palpitations (ED) Is patient prescribed a controlled substance at d/c from ED?: No Referrals: Nathan Berman MD [Primary Care Provider] - 1-2 days Time of Disposition: 14:55
[2021-01-27 13:53] LABS: ALT 37 U/L (4-49); AST 42 U/L (17-59); African American GFR (CKD) >90 (>60 ml/min/1.73 sqM); Albumin 4.7 g/dL (3.5-5.0); Alkaline Phosphatase 101 U/L (38-126); Anion Gap 9 mmol/L; Blood Urea Nitrogen 14 mg/dL (9-20); Calcium 9.9 mg/dL (8.4-10.2); Carbon Dioxide 26 mmol/L (22-30); Chloride 105 mmol/L (98-107); Glucose 98 mg/dL (74-99); Magnesium 2.2 mg/dL (1.6-2.3); Non-African American GFR(CKD) >90 (>60 ml/min/1.73 sqM); Potassium 3.9 mmol/L (3.5-5.1); Sodium 140 mmol/L (137-145); Total Bilirubin 1.5 mg/dL (0.2-1.3); Total Protein 7.7 g/dL (6.3-8.2)
[2021-01-27 14:20] VITALS: BP 124/84; PULSE 81; RESP 17
[2021-01-27 14:35] LABS: Basophils % (A) 1 %; Eosinophils # (A) 0.1 k/uL (0-0.7); Eosinophils % (A) 1 %; HCT 41.8 % (39.0-53.0); HGB 14.8 gm/dL (13.0-17.5); Hyperchromasia Slight; Lymphocytes # (A) 0.9 k/uL (1.0-4.8); Lymphocytes % (A) 16 %; MCH 30.2 pg (25.0-35.0); MCHC 35.4 g/dL (31.0-37.0); MCV 85.4 fL (80.0-100.0); Mean Platelet Volume 7.9; Monocytes # (A) 0.3 k/uL (0-1.0); Monocytes % (A) 5 %; Neutrophils # (A) 4.2 k/uL (1.3-7.7); Neutrophils % (A) 76 %; Platelet Count 226 k/uL (150-450); RDW 12.3 % (11.5-15.5); WBC 5.5 k/uL (3.8-10.6)
== END 2021-01-27 15:29 | disposition home or self-care (01) ==
LOC: EC 12:29
DX: R20.2 Paresthesia of skin (principal); R00.2 Palpitations; R42 Dizziness and giddiness; R20.0 Anesthesia of skin
CPT/HCPCS: 36415; 80053; 83735; 85025; 93005; 99284